=== PATIENT | male | born 1980 | race Caucasian/White ===

== ENCOUNTER 2018-05-14 18:03 | Emergency (ER) | payer BC, SELFPAY ==
[2018-05-14 18:08] VITALS: BP 139/77; PULSE 74; RESP 16; TEMP 37.1; O2SAT 96
--- NOTE | 2018-05-14 18:24 | W.ED.GENAD ---
Discharge Plan Disposition Patient Disposition: HOME Condition: Good Discharge Details Chief Complaint: DentalOral Clinical Impression: Dental infection Primary Care Provider: Edin Magana ED Provider: Zac Padilla Home Meds and New Rx's Prescriptions: New clindamycin HCl 150 mg capsule 450 mg PO TID 10 Days Qty: 90 RF: 0 Continue acetaminophen [Mapap Extra Strength] 500 MG tablet 1,000 mg PO PRN PRNRF: 0 sertraline 100 mg Tablet 200 mg PO DAILY RF: 0 Discharge Instructions Additional Instructions: follow up with your dentist within 2 weeks if you have difficulty swallowing liquids, high fevers or difficulty breathing return to the emergency department you can take 1000mg tylenol and 600mg ibuprofen every 6 hours for pain as needed Discharge Data Discharge Physician: Zac Padilla Medical Decision Making 37 yo male who denies chronic medical problems comes in with cc of left lower mid molar tooth pain since tuesday. Denies difficulty swallowing or breathing. Has numerous dental caries on exam and the tooth that is painful is eroded, no abscess, does have pain with percussion to the tooth. Has midline uvula, no swelling submandibular area, no pain over hyoid or restricted neck movements and has full rom of the neck, speaking in full sentences without stridor. HE has a pcn allergy so will cover dental infection with clindamycin and he will f/u with his dentist. No findings at this time to suggest rpa, airplane captain, ludwigs, epiglotitis Differential Diagnosis pulpitis, abscess, caries HPI General Mode of arrival: ambulatory. Date/Time Provider Initiated Documentation: 05/14/18 18:05. Limitations to Documentation: no limitations. Information obtained by: patient. History of Present Illness 37 year old M presents to the emergency department with the chief complaint of tooth pain, described as moderate, with intensity rated at 6. Quality is described as aching, and is localized to the mouth. Patient reports no radiation. Patient started experiencing this day(s) (2) and it has been constant. No relieving factors improve symptom(s), No exacerbating factors reported . Patient notes no other symptoms.. Patient did receive the following treatments prior to arrival, NSAID Related Data Home Medications Medication Instructions Recorded Confirmed acetaminophen [Mapap Extra 1,000 mg PO PRN PRN 12/26/17 05/14/18 Strength] clindamycin HCl 450 mg PO TID 10 Days #90 cap 05/14/18 sertraline 200 mg PO DAILY 05/14/18 05/14/18 Previous Rx's Medication Instructions Recorded clindamycin HCl 450 mg PO TID 10 Days #90 cap 05/14/18 Allergies Allergy/AdvReac Type Severity Reaction Status Date / Time Penicillins Allergy Mild Hives Unverified 02/26/18 09:16 General Stated Complaint: DentalOral VIVEK: 4 Review of Systems Review of Systems All systems reviewed & are unremarkable except as noted in HPI and below Constitutional Denies chills, Denies fever(s) and Denies weakness Eyes Denies loss of vision ENT Denies change in voice Cardiovascular Denies chest pain and Denies dyspnea Respiratory Denies dyspnea Gastrointestinal Denies abdominal pain, Denies nausea and Denies vomiting Genitourinary Denies dysuria Musculoskeletal Denies joint swelling Integumentary/Breasts Denies rash Neurologic Denies loss of vision and Denies weakness Psychiatric Denies depression Endocrine Denies cold intolerance and Denies heat intolerance Allergic/Immunologic Reports urticaria PFSH Social History Smoking/Tobacco Use Status: Current every day Exam Const General: no acute distress Orientation: alert HENMT Head: normal to inspection Ears: external ears normal General nose exam: external nose normal Mouth: moist mucous membranes Eyes General: appearance normal, both eyes and all related structures Neck Neck: normal visual inspection Resp Effort & Inspection: normal respiratory effort and able to speak in complete sentences Cardio Rate: regular rate Skin General skin exam: no rashes or lesions noted Neuro General: alert and oriented x3 Extrem General: normal to inspection Psych Mental Status: mental status grossly normal Course Vital Signs Temperature 37.1 C 05/14/18 18:08 Pulse 74 05/14/18 18:08 Respiratory Rate 16 05/14/18 18:08 Blood Pressure 139/77 05/14/18 18:08 Pulse Oximetry 96 05/14/18 18:08 Temperature 37.1 C 05/14/18 18:08 Temperature Source Skin 05/14/18 18:08 Pulse 74 05/14/18 18:08 Respiratory Rate 16 05/14/18 18:08 Respiratory Effort 05/14/18 18:16 Blood Pressure 139/77 05/14/18 18:08 Pulse Oximetry 96 05/14/18 18:08 Oxygen Delivery Method Room Air 05/14/18 18:08 Oxygen Flow Rate 0 05/14/18 18:08 Pain Level 7 05/14/18 18:08
--- NOTE | 2018-05-14 18:27 | ED.GENADUL_ITS ---
Discharge Plan Disposition Patient Disposition: HOME Condition: Good Discharge Details Chief Complaint: DentalOral Clinical Impression: Dental infection Primary Care Provider: Edin Magana ED Provider: Zac Padilla Home Meds and New Rx's Prescriptions: New clindamycin HCl 150 mg capsule 450 mg PO TID 10 Days Qty: 90 RF: 0 Continue acetaminophen [Mapap Extra Strength] 500 MG tablet 1,000 mg PO PRN PRNRF: 0 sertraline 100 mg Tablet 200 mg PO DAILY RF: 0 Discharge Instructions Additional Instructions: follow up with your dentist within 2 weeks if you have difficulty swallowing liquids, high fevers or difficulty breathing return to the emergency department you can take 1000mg tylenol and 600mg ibuprofen every 6 hours for pain as needed Discharge Data Discharge Physician: Zac Padilla Medical Decision Making 37 yo male who denies chronic medical problems comes in with cc of left lower mid molar tooth pain since tuesday. Denies difficulty swallowing or breathing. Has numerous dental caries on exam and the tooth that is painful is eroded, no abscess, does have pain with percussion to the tooth. Has midline uvula, no swelling submandibular area, no pain over hyoid or restricted neck movements and has full rom of the neck, speaking in full sentences without stridor. HE has a pcn allergy so will cover dental infection with clindamycin and he will f/ u with his dentist. 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 Date/Time Provider Initiated Documentation: 05/14/18 18:05 . Limitations to Documentation: no limitations . Information obtained by: patient . History of Present Illness 37 year old M presents to the emergency department with the chief complaint of tooth pain, described as moderate, with intensity rated at 6. Quality is described as aching, and is localized to the mouth. Patient reports no radiation. Patient started experiencing this day(s) (2) and it has been constant. No relieving factors improve symptom(s), No exacerbating factors reported . Patient notes no other symptoms.. Patient did receive the following treatments prior to arrival, NSAID Related Data Home Medications Medication Instructions Recorded Confirmed acetaminophen [Mapap Extra 1,000 mg PO PRN PRN 12/26/17 05/14/18 Strength] clindamycin HCl 450 mg PO TID 10 Days #90 cap 05/14/18 sertraline 200 mg PO DAILY 05/14/18 05/14/18 Previous Rx's Medication Instructions Recorded clindamycin HCl 450 mg PO TID 10 Days #90 cap 05/14/18 Allergies Allergy/AdvReac Type Severity Reaction Status Date / Time Penicillins Allergy Mild Hives Unverified 02/26/18 09:16 General Stated Complaint: DentalOral VIVEK: 4 Review of Systems Review of Systems All systems reviewed & are unremarkable except as noted in HPI and below Constitutional Denies chills, Denies fever(s) and Denies weakness Eyes Denies loss of vision ENT Denies change in voice Cardiovascular Denies chest pain and Denies dyspnea Respiratory Denies dyspnea Gastrointestinal Denies abdominal pain, Denies nausea and Denies vomiting Genitourinary Denies dysuria Musculoskeletal Denies joint swelling Integumentary/Breasts Denies rash Neurologic Denies loss of vision and Denies weakness Psychiatric Denies depression Endocrine Denies cold intolerance and Denies heat intolerance Allergic/Immunologic Reports urticaria PFSH Social History Smoking/Tobacco Use Status: Current every day Exam Const General: no acute distress Orientation: alert HENMT Head: normal to inspection Ears: external ears normal General nose exam: external nose normal Mouth: moist mucous membranes Eyes General: appearance normal, both eyes and all related structures Neck Neck: normal visual inspection Resp Effort & Inspection: normal respiratory effort and able to speak in complete sentences Cardio Rate: regular rate Skin General skin exam: no rashes or lesions noted Neuro General: alert and oriented x3 Extrem General: normal to inspection Psych Mental Status: mental status grossly normal Course Vital Signs Temperature 37.1 C 05/14/18 18:08 Pulse 74 05/14/18 18:08 Respiratory Rate 16 05/14/18 18:08 Blood Pressure 139/77 05/14/18 18:08 Pulse Oximetry 96 05/14/18 18:08 Temperature 37.1 C 05/14/18 18:08 Temperature Source Skin 05/14/18 18:08 Pulse 74 05/14/18 18:08 Respiratory Rate 16 05/14/18 18:08 Respiratory Effort 05/14/18 18:16 Blood Pressure 139/77 05/14/18 18:08 Pulse Oximetry 96 05/14/18 18:08 Oxygen Delivery Method Room Air 05/14/18 18:08 Oxygen Flow Rate 0 05/14/18 18:08 Pain Level 7 05/14/18 18:08
[2018-05-14] MEDS: Clindamycin 150 MG CAP 450 MG PO (18:38)
== END 2018-05-14 18:40 | disposition home or self-care (01) ==
PROVIDERS: Emergency Provider Emergency Medicine; PCP Internal Medicine
DX: K04.7 Periapical abscess without sinus (principal); F17.210 Nicotine dependence, cigarettes, uncomplicated
CPT/HCPCS: 99283

== ENCOUNTER 2018-07-18 21:57 | Emergency (ER) | payer BC, SELFPAY ==
[2018-07-18 22:43] VITALS: BP 109/66; PULSE 108; RESP 16; TEMP 37.9; O2SAT 98
--- NOTE | 2018-07-18 23:03 | W.ED.GENAD ---
Discharge Plan Disposition Patient Disposition: HOME Condition: Good Discharge Details Chief Complaint: RespSymp Clinical Impression: Viral URI Primary Care Provider: Edin Magana ED Provider: Brodie Yu Home Meds and New Rx's Prescriptions: New oseltamivir [Tamiflu] 75 mg capsule 75 mg PO BID 5 Days Qty: 10 RF: 0 No Action acetaminophen [Mapap Extra Strength] 500 MG tablet 1,000 mg PO PRN PRNRF: 0 sertraline 100 mg Tablet 200 mg PO DAILY RF: 0 Discharge Instructions Instructions: Influenza (ED), Upper Respiratory Infection (ED) Additional Instructions: Please take medication as directed. Please take Tylenol Motrin for fever and chills. Please drink 8-10 cups of water per day. If you notice any worsening of your symptoms, or any new symptoms such as vomiting, diarrhea, fever, chills, shortness of breath, chest pain, numbness, weakness, or fainting , please return immediately to the emergency department for reevaluation. Please follow up with your primary care provider as soon as possible for reassessment and reevaluation. As always, it was a pleasure participating in your medical care today. Referrals: Edin Magana MD [Primary Care Provider] - Medical Decision Making This is a 37-year-old male who presents today for evaluation of fever, chills, cough, congestion and runny nose. He was recently exposed to someone who was influenza positive roughly 4 days ago. Since then he has had his symptoms over the last 36 hours. Patient strep test is negative. Influenza is negative however the remainder of his family has similar symptoms, with the patient's clinical history suggestive of close contact with influenza, as well as his signs and symptoms clinically consistent with influenza I feel that this may be falsely negative. With my high clinical suspicion we will prescribe Tamiflu. We recommend close follow-up with his PCP. We discussed red flags for which to return. With no signs of meningitis, no abnormal lung sounds, normal respiratory rate and oxygen saturations, I feel that the patient would be a good candidate for outpatient management. I have extensively reviewed the treatment plan and discharge instructions with the patient and their family. I have addressed all patient concerns at this time. The patient and family was made aware of what symptoms to monitor for that would warrant a return to the emergency department. Discussed the plan with the patient and family, they demonstrate verbal understanding and agreement with our assessment and plan at this time. HPI General Date/Time Provider Initiated Documentation: 07/18/18 22:17. HPI Narrative: This is a 37-year-old male with past medical history of sleep apnea who presents today for evaluation of sore throat cough fever and chills. The patient and his entire family were exposed to someone who is influenza positive. There were exposed roughly 3-4 days ago. Since then the entire family has come down with cough, fever, chills, congestion, and runny nose over the last 36 hours. Patient denies any neck stiffness, neck pain, hemoptysis, chest pain, shortness of breath, numbness, tingling, weakness. He denies any urinary symptoms. He denies any vomiting, or diarrhea. He has no other complaints at this time. He denies any other modifying factors. He is not been taking Tylenol or Motrin. Related Data Home Medications Medication Instructions Recorded Confirmed acetaminophen [Mapap Extra 1,000 mg PO PRN PRN 12/26/17 05/14/18 Strength] sertraline 200 mg PO DAILY 05/14/18 05/14/18 oseltamivir [Tamiflu] 75 mg PO BID 5 Days #10 cap 07/18/18 Previous Rx's Medication Instructions Recorded oseltamivir [Tamiflu] 75 mg PO BID 5 Days #10 cap 07/18/18 Allergies Allergy/AdvReac Type Severity Reaction Status Date / Time Penicillins Allergy Mild Hives Unverified 02/26/18 09:16 General Stated Complaint: RespSymp VIVEK: 4 Review of Systems Review of Systems All systems reviewed & are unremarkable except as noted in HPI and below [facility] Social History Smoking/Tobacco Use Status: Current every day Exam Narrative Exam Narrative: 1.Const: Well-nourished, Well-developed, appearing stated age 2.Eyes: PERRL, no conjunctival injection, and symmetrical lids. 3.ENT: Atraumatic external nose and ears. Moist MM. Neck: Symmetric, trachea midline, No thyromegaly. Patient demonstrates good movement of cervical neck. There is no nuchal rigidity, no nuchal tenderness. Patient is able to flex the neck without any difficulty or significant pain. Negative Kernig's and Brudzinski sign. 4.CVS: +S1/S2, No murmurs or gallops. Peripheral pulses 2+ and equal in all extremities. Brisk capillary refill in all extremities. 5.RESP: Unlabored respiratory effort. Clear to auscultation bilaterally. No wheezes rales or rhonchi 6.GI: Soft, Nontender/Nondistended, No hepatosplenomegaly. No guarding or rebound. 7.MSK: Normocephalic/Atraumatic, Extremities w/o deformity or ttp No cyanosis or clubbing, Normal movement of all extremities 8.Skin: Warm, Dry. No rashes or lesions. 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 Sensation grossly intact, no focal neurologic deficits. 10.Psych: (AAO) x3. Appropriate mood and affect Course Vital Signs Temperature 37.9 C H 07/18/18 22:43 Pulse 108 H 07/18/18 22:43 Respiratory Rate 16 07/18/18 22:43 Blood Pressure 109/66 07/18/18 22:43 Pulse Oximetry 98 07/18/18 22:43 Temperature 37.9 C H 07/18/18 22:43 Pulse 108 H 07/18/18 22:43 Respiratory Rate 16 07/18/18 22:43 Respiratory Effort 07/18/18 22:47 Blood Pressure 109/66 07/18/18 22:43 Blood Pressure Position Sitting 07/18/18 22:43 Pulse Oximetry 98 07/18/18 22:43 Oxygen Delivery Method Room Air 07/18/18 22:43 Oxygen Flow Rate 0 07/18/18 22:43 Pain Level 8 07/18/18 22:43 Lab/Test Results Lab/Test Results: 07/18/18 22:32 Nasopharynx Influenza Types A,B Antigen - Final POC Strep Test-EMMANUEL(Rapid) Start: 07/18/18 22:17 Freq: .Rapid Strep Test Status: Active Protocol: Document 07/18/18 22:45 (Rec: 07/18/18 22:45 [id number]) Strep test-EMMANUEL(Rapid)-POC POC-Strep test-EMMANUEL (Rapid) Negative POC-Strep test-EMMANUEL (Rapid) Negative
--- NOTE | 2018-07-18 23:07 | ED.GENADUL_ITS ---
Discharge Plan Disposition Patient Disposition: HOME Condition: Good Discharge Details Chief Complaint: RespSymp Clinical Impression: Viral URI Primary Care Provider: Edin Magana ED Provider: Brodie Yu Home Meds and New Rx's Prescriptions: New oseltamivir [Tamiflu] 75 mg capsule 75 mg PO BID 5 Days Qty: 10 RF: 0 No Action acetaminophen [Mapap Extra Strength] 500 MG tablet 1,000 mg PO PRN PRNRF: 0 sertraline 100 mg Tablet 200 mg PO DAILY RF: 0 Discharge Instructions Instructions: Influenza (ED), Upper Respiratory Infection (ED) Additional Instructions: Please take medication as directed. Please take Tylenol Motrin for fever and chills. Please drink 8-10 cups of water per day. If you notice any worsening of your symptoms, or any new symptoms such as vomiting, diarrhea, fever, chills, shortness of breath, chest pain, numbness, weakness, or fainting , please return immediately to the emergency department for reevaluation. Please follow up with your primary care provider as soon as possible for reassessment and reevaluation. As always, it was a pleasure participating in your medical care today. Referrals: Edin Magana MD [Primary Care Provider] - Medical Decision Making This is a 37-year-old male who presents today for evaluation of fever, chills, cough, congestion and runny nose. He was recently exposed to someone who was influenza positive roughly 4 days ago. Since then he has had his symptoms over the last 36 hours. Patient strep test is negative. Influenza is negative however the remainder of his family has similar symptoms, with the patient's clinical history suggestive of close contact with influenza, as well as his signs and symptoms clinically consistent with influenza I feel that this may be falsely negative. With my high clinical suspicion we will prescribe Tamiflu. We recommend close follow-up with his PCP. We discussed red flags for which to return. With no signs of meningitis, no abnormal lung sounds, normal respiratory rate and oxygen saturations, I feel that the patient would be a good candidate for outpatient management. I have extensively reviewed the treatment plan and discharge instructions with the patient and their family. I have add ressed all patient concerns at this time. The patient and family was made aware of what symptoms to monitor for that would warrant a return to the emergency department. Discussed the plan with the patient and family, they demonstrate verbal understanding and agreement with our assessment and plan at this time. HPI General Date/Time Provider Initiated Documentation: 07/18/18 22:17 . HPI Narrative: This is a 37-year-old male with past medical history of sleep apnea who presents today for evaluation of sore throat cough fever and chills. The patient and his entire family were exposed to someone who is influenza positive. There were exposed roughly 3-4 days ago. Since then the entire family has come down with cough, fever, chills, congestion, and runny nose over the last 36 hours. Patient denies any neck stiffness, neck pain, hemoptysis, chest pain, shortness of breath, numbness, tingling, weakness. He denies any urinary symptoms. He denies any vomiting, or diarrhea. He has no other complaints at this time. He denies any other modifying factors. He is not been taking Tylenol or Motrin. Related Data Home Medications Medication Instructions Recorded Confirmed acetaminophen [Mapap Extra 1,000 mg PO PRN PRN 12/26/17 05/14/18 Strength] sertraline 200 mg PO DAILY 05/14/18 05/14/18 oseltamivir [Tamiflu] 75 mg PO BID 5 Days #10 cap 07/18/18 Previous Rx's Medication Instructions Recorded oseltamivir [Tamiflu] 75 mg PO BID 5 Days #10 cap 07/18/18 Allergies Allergy/AdvReac Type Severity Reaction Status Date / Time Penicillins Allergy Mild Hives Unverified 02/26/18 09:16 General Stated Complaint: RespSymp VIVEK: 4 Review of Systems Review of Systems All systems reviewed & are unremarkable except as noted in HPI and below [facility] Social History Smoking/Tobacco Use Status: Current every day Exam Narrative Exam Narrative: 1.Const: Well-nourished, Well-developed, appearing stated age 2.Eyes: PERRL, no conjunctival injection, and symmetrical lids. 3.ENT: Atraumatic external nose and ears. Moist MM. Neck: Symmetric, trachea midline, No thyromegaly. Patient demonstrates good movement of cervical neck. There is no nuchal rigidity, no nuchal tenderness. Patient is able to flex the neck without any difficulty or significant pain. Negative Kernig's and Brudzinski sign. 4.CVS: +S1/S2, No murmurs or gallops. Peripheral pulses 2+ and equal in all extremities. Brisk capillary refill in all extremities. 5.RESP: Unlabored respiratory effort. Clear to auscultation bilaterally. No wheezes rales or rhonchi 6.GI: Soft, Nontender/Nondistended, No hepatosplenomegaly. No guarding or rebound. 7.MSK: Normocephalic/Atraumatic, Extremities w/o deformity or ttp No cyanosis or clubbing, Normal movement of all extremities 8.Skin: Warm, Dry. No rashes or lesions. 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 Sensation grossly intact, no focal neurologic deficits. 10.Psych: (AAO) x3. Appropriate mood and affect Course Vital Signs Temperature 37.9 C H 07/18/18 22:43 Pulse 108 H 07/18/18 22:43 Respiratory Rate 16 07/18/18 22:43 Blood Pressure 109/66 07/18/18 22:43 Pulse Oximetry 98 07/18/18 22:43 Temperature 37.9 C H 07/18/18 22:43 Pulse 108 H 07/18/18 22:43 Respiratory Rate 16 07/18/18 22:43 Respiratory Effort 07/18/18 22:47 Blood Pressure 109/66 07/18/18 22:43 Blood Pressure Position Sitting 07/18/18 22:43 Pulse Oximetry 98 07/18/18 22:43 Oxygen Delivery Method Room Air 07/18/18 22:43 Oxygen Flow Rate 0 07/18/18 22:43 Pain Level 8 07/18/18 22:43 Lab/Test Results Lab/Test Results: 07/18/18 22:32 Nasopharynx Influenza Types A,B Antigen - Final POC Strep Test-EMMANUEL(Rapid) Start: 07/18/18 22:17 Freq: .Rapid Strep Test Status: Active Protocol: Document 07/18/18 22:45 AC (Rec: 07/18/18 22:45 [id number]) Strep test-EMMANUEL(Rapid)-POC POC-Strep test-EMMANUEL (Rapid) Negative POC-Strep test-EMMANUEL (Rapid) Negative
[2018-07-18] MEDS: Ibuprofen 800 MG TAB PO (23:18)
[2018-07-18] MEDS: Oseltamivir 75 MG CAP PO (23:19)
== END 2018-07-18 23:18 | disposition home or self-care (01) ==
PROVIDERS: Emergency Provider Student in an Organized Health Care Education/Training Program; PCP Internal Medicine
DX: J06.9 Acute upper respiratory infection, unspecified (principal)
CPT/HCPCS: 87449; 87880; 99283

== ENCOUNTER 2018-12-06 17:00 | Emergency (ER) | payer OTHER, SELFPAY ==
[2018-12-06 17:02] VITALS: BP 140/77; PULSE 80; TEMP 37.1; O2SAT 98
--- NOTE | 2018-12-06 17:04 | DI.US_ITS ---
SYMPTOM/DIAGNOSIS: LT TESTICLE PAIN, SWELLING, ? TORSION SCROTAL ULTRASOUND: Scrotal ultrasound was performed according to the usual protocol. No testicular abnormality is seen. Testicular parenchyma is homogeneous bilaterally with normal vascular flow on doppler evaluation. Right epididymis is unremarkable in appearance. Left epididymis shows an appendix with slightly increased in echogenicity in contrast to the adjacent epididymis. The possibility of epididymal appendix torsion not excluded. Please correlate clinically. Small bilateral hydroceles. Minimal debris is noted in the right hydrocele and there are septations and minimal debris in the left hydrocele. CONCLUSION: Bilateral hydroceles, left greater than right. No intratesticular abnormality.
[2018-12-06 17:28] LABS: Bilirubin Negative (Negative); Blood Trace-intact (Negative); Clarity Clear; Glucose Negative (Negative); Ketones Negative (Negative); Leukocyte Esterase Negative (Negative); Nitrite Negative (Negative); Specific Gravity 1.025 (1.005-1.025); Urobilinogen 0.2 EU/dL (Up TO 0.2); pH 5.5 (5-8)
[2018-12-06 17:38] LABS: Bacteria Negative HPF (Negative); C & S Indicated? No; Casts Negative LPF (Negative); Crystals Negative HPF (Negative); Epithelial Cells Negative HPF (Negative); Mucus Negative (Negative); Other Cells Negative (Negative); RBC 0-2 (0-2); WBC 0-2 HPF (0-5)
--- NOTE | 2018-12-06 17:54 | W.ED.GENAD ---
Discharge Plan Disposition Patient Disposition: HOME Condition: Good Discharge Details Chief Complaint: GenMedical Clinical Impression: Bilateral hydrocele, Acute epididymitis Primary Care Provider: Edin Magana ED Provider: Brodie Yu Home Meds and New Rx's Prescriptions: New ibuprofen [Motrin IB] 200 MG tablet 600 mg PO Q6H 5 Days Qty: 60 RF: 0 Continued sertraline 100 mg Tablet 200 mg PO DAILY RF: 0 Discontinued acetaminophen [Mapap Extra Strength] 500 MG tablet 1,000 mg PO PRN PRNRF: 0 Discharge Instructions Instructions: Epididymitis (ED), Testicle Pain (ED) Additional Instructions: Please take maximum dose Tylenol and Motrin as directed. Please wear more tighter fitting underwear. Do not perform any vigorous activities. We will schedule urology follow-up for you. You will be contacted with an appointment date for reassessment of your hydroceles. If you notice any worsening of your symptoms, or any new symptoms such as vomiting, diarrhea, fever, chills, shortness of breath, chest pain, numbness, weakness, or fainting , please return immediately to the emergency department for reevaluation. Please follow up with your primary care provider as soon as possible for reassessment and reevaluation. As always, it was a pleasure participating in your medical care today. Referrals: Chao Stone MD [ [facility] STAFF PHYSICIAN] - Edin Magana MD [Primary Care Provider] - Medical Decision Making This is a pleasant 38-year-old male who presents today for evaluation of left testicle pain. It occurred this morning when he woke up. He has some mild to moderate swelling located over the left testicle, exam demonstrates normal cremasteric reflex bilaterally, notable left epididymal swelling, no significant testicular tenderness. Cremasteric reflex is present, though I suspect the patient has epididymitis with a varicocele, or a hydrocele component. We will get an ultrasound for further evaluation, to rule out torsion which I feel is clinically inconsistent at this time, and reassess. We will give Tylenol and Motrin for pain. 7:25 PM The patient has complete resolution of his symptoms with Tylenol and Motrin. Ultrasound shows no evidence of testicular torsion. There is evidence of slightly enlarged epididymis with questionable evidence of epididymal appendix, however there is no evidence of surrounding hyperemia or other significant abnormality. Clinically there is no blue dot sign, and no clinical evidence of testicular torsion, both historically and on exam. I discussed this with the radiologist, and they reiterate that the findings noted on the ultrasound are often not indicative of epididymal appendiceal torsion, and that ultrasonographic evaluation can be notably difficult without a clinical component. And as stated the patient shows no clinical signs of epididymal appendiceal torsion. He does have notable hydroceles, and this appears to be where his tenderness and achiness is located. We have sent gonorrhea and Chlamydia testing however the patient assures me that he is not at risk for gonorrhea or chlamydia. I did discuss starting antibiotics, through shared decision making process at this time he would like to hold off unless the gonorrhea or chlamydia comes back positive. Will recommend maximum dose Tylenol, Motrin and close are fitting underwear for his mild epididymitis and mild hydrocele pain. We will also schedule outpatient urology follow-up. We discussed red flags which to return the patient understands. With the patient's complete resolution of his pain, lack of clinical evidence of epididymal appendiceal torsion, or testicular torsion, and no evidence of fever, chills or UTI, I feel he can be safely discharged home with close urology follow-up. I have extensively reviewed the treatment plan and discharge instructions with the patient. I have addressed all patient concerns at this time. The patient was made aware of what symptoms to monitor for that would warrant a return to the emergency department. Discussed the plan with the patient, they demonstrate verbal understanding and agreement with our assessment and plan at this time. TECHNIQUE: Imaging protocol: Real-time ultrasound of the scrotum. Real-time duplex ultrasound scan of the arterial and venous flow of the scrotum with B-mode, color Doppler flow and spectral waveform analysis. Complete exam. COMPARISON: No relevant prior studies available. FINDINGS: Right Testicle: Right testis measures 4.7 x 2.9 x 3.4 cm. Left Testicle: Left testis measures 4.4 x 3.4 x 3.4 cm. Epididymides: Left epididymis measures 1.1 x 0.9 x 1.0 cm. Right epididymis measures 1.3 x 0.6 x 1.1 cm. There is a left epididymal appendix which measures 6.2 mm and is heterogeneous and is slightly hyperechoic to the surrounding epididymis. There is no surrounding hyperemia. Only a small dot of color blood flow is seen, possibly artifactual per the electroencephalogram technologist. Blood flow is often difficult to obtain in the epididymal structures. Scrotum: There are left greater than right bilateral hydroceles which contain debris. No varicoceles are seen. Other findings: There is symmetric blood flow within the testes bilaterally. Arterial and venous waveforms were obtained. Both testes are mildly heterogeneous in appearance. BRIDGETT ARGUELLO Preliminary Radiology Report MANAGER BATTERY (QA) DISCREPANCY? If there is a discrepancy between the preliminary and final interpretation, please notify [facility] via [email or web address]. If you do not have access to our QA portal, call our QA team at [phone] CONFIDENTIALITY STATEMENT This report is intended only for the use of the referring physician, and only in accordance with law, If you received this in error, call [phone] Page 2 of 2 IMPRESSION: 1. Symmetric blood flow to the testes bilaterally. 2. There is a left epididymal appendix which measures 6.2 mm and is heterogeneous and slightly hyperechoic to the surrounding epididymis. There is no surrounding hyperemia. Only a small dot of color blood flow is seen, possibly artifactual per the electroencephalogram technologist. Blood flow is often difficult to obtain in the epididymal structures. Findings should be correlated with any clinical concern for torsed epididymal appendix. 3. Left greater than right bilateral hydroceles which contain debris. This debris could represent infectious material, blood products, or sperm. 4. Other findings as above. Thank you for allowing us to participate in the care of your patient. Dictated and Authenticated by: Jessica Pierre MD [facility] General Date/Time Provider Initiated Documentation: 12/06/18 17:04. [facility] Narrative: This is a 38-year-old male with a past medical history of anxiety, who presents today for evaluation of left testicle pain. The patient states that this morning he woke up and noted mild pain and swelling in his left testicle. He describes it as a mild in nature. It is present in his left testicle, with no pain in the right testicle. Slight radiation up the left groin. He denies any dysuria, hematuria, STDs, or urethral discharge. He denies any vomiting, diarrhea, chest pain or shortness of breath. He denies any numbness or tingling in his legs. He denies any previous history of testicular torsion. He denies any trauma to his testicles. He denies any hematospermia or hematuria. He states that the last time he had intercourse or masturbated was greater than a week ago and he had no problems or complaints at that time. Related Data Home Medications Medication Instructions Recorded Confirmed sertraline 200 mg PO DAILY 05/14/18 05/14/18 ibuprofen [Motrin Ib] 600 mg PO Q6H 5 Days #60 tab 12/06/18 Previous Rx's Medication Instructions Recorded ibuprofen [Motrin Ib] 600 mg PO Q6H 5 Days #60 tab 12/06/18 Allergies Allergy/AdvReac Type Severity Reaction Status Date / Time Penicillins Allergy Mild Hives Unverified 02/26/18 09:16 General Stated Complaint: GenMedical VIVEK: 3 Review of Systems Review of Systems All systems reviewed & are unremarkable except as noted in HPI and below PFSH Social History Smoking/Tobacco Use Status: Current every day Drug use: Never Substance use type: does not use Do you feel safe at home: Yes Do you feel safe in your relationship?: Yes Exam Narrative Exam Narrative: 1.Const: Well-nourished, Well-developed, appearing stated age 2.Eyes: PERRL, no conjunctival injection, and symmetrical lids. 3.ENT: Atraumatic external nose and ears. Moist MM. Neck: Symmetric, trachea midline, No thyromegaly. 4.CVS: +S1/S2, No murmurs or gallops. Peripheral pulses 2+ and equal in all extremities. Brisk capillary refill in all extremities. 5.RESP: Unlabored respiratory effort. Clear to auscultation bilaterally. No wheezes rales or rhonchi 6.GI: Soft, Nontender/Nondistended, No hepatosplenomegaly. No guarding or rebound. Male genital exam demonstrates normal penis with no evidence of penile tenderness, no evidence of urethral discharge, it is nontender to palpation. Left testicle is minimally tender, there is an notable fluctuant soft swelling component noted in the left epididymis. Minimal tenderness on palpation. No testicular tenderness on the right. No evidence of scrotal abscess. Normal cremasteric reflex bilaterally. 7.MSK: Normocephalic/Atraumatic, Extremities w/o deformity or ttp No cyanosis or clubbing, Normal movement of all extremities 8.Skin: Warm, Dry. No rashes or lesions. 9.Neuro: brim setter II-XII grossly intact. Sensation grossly intact, no focal neurologic deficits. 10.Psych: (AAO) x3. Appropriate mood and affect Course Vital Signs Temperature 37.1 C 12/06/18 17:02 Pulse 80 12/06/18 17:02 Blood Pressure 140/77 12/06/18 17:02 Pulse Oximetry 98 12/06/18 17:02 Temperature 37.1 C 12/06/18 17:02 Temperature Source Skin 12/06/18 17:02 Pulse 80 12/06/18 17:02 Blood Pressure 140/77 12/06/18 17:02 Blood Pressure Position Sitting 12/06/18 17:02 Pulse Oximetry 98 12/06/18 17:02 Oxygen Delivery Method Room Air 12/06/18 17:02 Oxygen Flow Rate 0 12/06/18 17:02 Pain Level 3 12/06/18 17:02 Lab/Test Results Lab/Test Results: Laboratory Tests Range/Units 12/06/18 17:15 Urine Color (Yellow) Yellow Urine Clarity Clear Urine pH (5-8) 5.5 Ur Specific Lamar (1.005-1.025) 1.025 Urine Protein (Negative) mg/dL Negative Urine Ketones (Negative) mg/dL Negative Urine Blood (Negative) Trace-intact H Urine Nitrite (Negative) Negative Urine Bilirubin (Negative) Negative Urine Urobilinogen (Up TO 0.2) EU/dL 0.2 Ur Leukocyte Esterase (Negative) Negative Urine RBC (0-2) 0-2 Urine WBC (0-5) HPF 0-2 Ur Epithelial Cells (Negative) HPF Negative Urine Crystals (Negative) HPF Negative Urine Bacteria (Negative) HPF Negative Urine Casts (Negative) LPF Negative Urine Mucus (Negative) Negative Urine Other (Negative) Negative Ur Culture Indicated? No Urine Glucose (Negative) mg/dL Negative
[2018-12-06 18:46] VITALS: BP 112/70; PULSE 76; RESP 16; TEMP 37.1; O2SAT 96
[2018-12-06 18:52] VITALS: BP 112/70; PULSE 76; RESP 16; TEMP 37.1; O2SAT 96
--- NOTE | 2018-12-06 19:20 | DI.VRAD_ITS ---
Addendum created by Jessica Pierre MD on 12/06/2018 7:24:44 PM EDT Findings were discussed with ROGE LIN at 12/06/2018 7:24 PM EDT. Initial report created on 12/06/2018 7:20:03 PM EDT EXAM: US Scrotum and US Duplex Artery and Vein, Scrotum, Complete EXAM DATE/TIME: 12/06/2018 6:10 PM CLINICAL HISTORY: 38 years old, male; Signs and symptoms; Other: Left testicular pain/swelling since this am 6:00 (12 hours before scan) TECHNIQUE: Imaging protocol: Real-time ultrasound of the scrotum. Real-time duplex ultrasound scan of the arterial and venous flow of the scrotum with B-mode, color Doppler flow and spectral waveform analysis. Complete exam. COMPARISON: No relevant prior studies available. FINDINGS: Right Testicle: Right testis measures 4.7 x 2.9 x 3.4 cm. Left Testicle: Left testis measures 4.4 x 3.4 x 3.4 cm. Epididymides: Left epididymis measures 1.1 x 0.9 x 1.0 cm. Right epididymis measures 1.3 x 0.6 x 1.1 cm. There is a left epididymal appendix which measures 6.2 mm and is heterogeneous and is slightly hyperechoic to the surrounding epididymis. There is no surrounding hyperemia. Only a small dot of color blood flow is seen, possibly artifactual per the polysomnography technologist. Blood flow is often difficult to obtain in the epididymal structures. Scrotum: There are left greater than right bilateral hydroceles which contain debris. No varicoceles are seen. Other findings: There is symmetric blood flow within the testes bilaterally. Arterial and venous waveforms were obtained. Both testes are mildly heterogeneous in appearance. IMPRESSION: 1. Symmetric blood flow to the testes bilaterally. 2. There is a left epididymal appendix which measures 6.2 mm and is heterogeneous and slightly hyperechoic to the surrounding epididymis. There is no surrounding hyperemia. Only a small dot of color blood flow is seen, possibly artifactual per the polysomnography technologist. Blood flow is often difficult to obtain in the epididymal structures. Findings should be correlated with any clinical concern for torsed epididymal appendix. 3. Left greater than right bilateral hydroceles which contain debris. This debris could represent infectious material, blood products, or sperm. 4. Other findings as above. Dictated and Authenticated by: Jessica Pierre MD. Ordering:JORDEN Calloway MD
--- NOTE | 2018-12-07 07:06 | NUR.NOTE ---
Nursing Note: [facility]. Sophia Keenan.
[2018-12-08 14:42] LABS: Chlamydia Result Negative; GC Result Negative; Specimen Description URINE
--- NOTE | 2018-12-28 14:21 | PDOC.ERCMPRO ---
Care Management Progress Note 12/28-[facility] for an urology appt in 2 weeks for large hydroceles. [facility] faxed back today that they have reached out to patient on 12/08, 12/14 and 12/19 with no response from the patient.
== END 2018-12-06 19:39 | disposition home or self-care (01) ==
PROVIDERS: Emergency Provider Student in an Organized Health Care Education/Training Program; PCP Internal Medicine
DX: N43.3 Hydrocele, unspecified (principal)
CPT/HCPCS: 87491; 87591; 99284; 76870; 81003; 81015

== ENCOUNTER 2018-12-23 03:35 | Emergency (ER) | payer OTHER, SELFPAY ==
[2018-12-23 03:40] VITALS: BP 121/83; PULSE 85; RESP 20; TEMP 37.4; O2SAT 98
--- NOTE | 2018-12-23 03:51 | W.ED.GENAD ---
Discharge Plan Disposition Patient Disposition: HOME Condition: Stable Discharge Details Chief Complaint: RespSymp Clinical Impression: URI (upper respiratory infection) Primary Care Provider: Edin Magana ED Provider: Zac Padlila Home Meds and New Rx's Prescriptions: No Action sertraline 100 mg Tablet 200 mg PO DAILY RF: 0 Discharge Instructions Additional Instructions: You likely are suffering from a viral illness Drink fluids to stay hydrated take 1000mg tylenol and 600mg ibuprofen every 6 hours for pain as needed if symptoms continue in a week see your primary care provider return to the emergency department if you feel significantly more ill, have worsening shortness of breath or persistent vomit Medical Decision Making 38 yo male who denies chronic medical problems comes in with several days of sore throat. Dneies high fevres, has had a dry cough, body aches and also sinus pressure and nasal congestion. No recent travel, no rashes. He is in no distress on exam. 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 HE has clear lungs and appears well so doubt pna and sepsis at this time. I suspect uri due to virus but will eval for strep, if negative will have him use otc therapies and f/u with pcp, and if worsening return for reeval Differential Diagnosis strep pharyngitis, uri, HPI General Mode of arrival: ambulatory. Date/Time Provider Initiated Documentation: 12/23/18 03:47. Limitations to Documentation: no limitations. Information obtained by: patient. History of Present Illness 38 year old M presents to the emergency department with the chief complaint of sore throat, described as moderate, Quality is described as aching, Patient started experiencing this day(s) (3) and it has been constant. No relieving factors improve symptom(s), No exacerbating factors reported . Patient did receive the following treatments prior to arrival, none Related Data Home Medications Medication Instructions Recorded Confirmed sertraline 200 mg PO DAILY 05/14/18 12/23/18 Allergies Allergy/AdvReac Type Severity Reaction Status Date / Time Penicillins Allergy Mild Hives Unverified 12/23/18 03:45 General Stated Complaint: RespSymp VIVEK: 4 Review of Systems Review of Systems All systems reviewed & are unremarkable except as noted in HPI and below Constitutional Denies fever(s) Cardiovascular Denies chest pain Gastrointestinal Denies vomiting Integumentary/Breasts Denies rash [facility] Social History Smoking/Tobacco Use Status: Current every day Drug use: Never Substance use type: does not use Do you feel safe at home: Yes Do you feel safe in your relationship?: Yes Exam Const General: no acute distress Orientation: alert HENMT Head: normal to inspection Ears: external ears normal General nose exam: external nose normal Mouth: moist mucous membranes Eyes General: appearance normal, both eyes and all related structures Neck Neck: normal visual inspection Resp Effort & Inspection: normal respiratory effort and able to speak in complete sentences Cardio Rate: regular rate Skin General skin exam: no rashes or lesions noted Neuro General: alert and oriented x3 Extrem General: normal to inspection Psych Mental Status: mental status grossly normal Course Vital Signs Temperature 37.4 C 12/23/18 03:40 Pulse 85 12/23/18 03:40 Respiratory Rate 20 12/23/18 03:40 Blood Pressure 121/83 12/23/18 03:40 Pulse Oximetry 98 12/23/18 03:40 Temperature 37.4 C 12/23/18 03:40 Temperature Source Temporal Artery Scan 12/23/18 03:40 Pulse 85 12/23/18 03:40 Respiratory Rate 20 12/23/18 03:40 Respiratory Effort 12/23/18 03:46 Respiratory Depth Normal 12/23/18 03:46 Blood Pressure 121/83 12/23/18 03:40 Blood Pressure Position Sitting 12/23/18 03:40 Pulse Oximetry 98 12/23/18 03:40 Oxygen Delivery Method Room Air 12/23/18 03:40 Oxygen Flow Rate 0 12/23/18 03:40 Pain Level 0 12/23/18 03:40
--- NOTE | 2018-12-23 03:56 | ED.GENADUL_ITS ---
Discharge Plan Disposition Patient Disposition: HOME Condition: Stable Discharge Details Chief Complaint: RespSymp Clinical Impression: URI (upper respiratory infection) Primary Care Provider: Edin Magana ED Provider: Zac Padilla Home Meds and New Rx's Prescriptions: No Action sertraline 100 mg Tablet 200 mg PO DAILY RF: 0 Discharge Instructions Additional Instructions: You likely are suffering from a viral illness Drink fluids to stay hydrated take 1000mg tylenol and 600mg ibuprofen every 6 hours for pain as needed if symptoms continue in a week see your primary care provider return to the emergency department if you feel significantly more ill, have worsening shortness of breath or persistent vomit Medical Decision Making 38 yo male who denies chronic medical problems comes in with several days of sore throat. Dneies high fevres, has had a dry cough, body aches and also sinus pressure and nasal congestion. No recent travel, no rashes. He is in no distress on exam. 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 HE has clear lungs and appears well so doubt pna and sepsis at this time. I suspect uri due to virus but will eval for strep, if negative will have him use otc therapies and f/u with pcp, and if worsening return for reeval Differential Diagnosis strep pharyngitis, uri, HPI General Mode of arrival: ambulatory . Date/Time Provider Initiated Documentation: 12/23/18 03:47 . Limitations to Documentation: no limitations . Information obtained by: patient . History of Present Illness 38 year old M presents to the emergency department with the chief complaint of sore throat, described as moderate, Quality is described as aching, Patient started experiencing this day(s) (3) and it has been constant. No relieving factors improve symptom(s), No exacerbating factors reported . Patient did receive the following treatments prior to arrival, none Related Data Home Medications Medication Instructions Recorded Confirmed sertraline 200 mg PO DAILY 05/14/18 12/23/18 Allergies Allergy/AdvReac Type Severity Reaction Status Date / Time Penicillins Allergy Mild Hives Unverified 12/23/18 03:45 General Stated Complaint: RespSymp VIVEK: 4 Review of Systems Review of Systems All systems reviewed & are unremarkable except as noted in HPI and below Constitutional Denies fever(s) Cardiovascular Denies chest pain Gastrointestinal Denies vomiting Integumentary/Breasts Denies rash [facility] Social History Smoking/Tobacco Use Status: Current every day Drug use: Never Substance use type: does not use Do you feel safe at home: Yes Do you feel safe in your relationship?: Yes Exam Const General: no acute distress Orientation: alert HENMT Head: normal to inspection Ears: external ears normal General nose exam: external nose normal Mouth: moist mucous membranes Eyes General: appearance normal, both eyes and all related structures Neck Neck: normal visual inspection Resp Effort & Inspection: normal respiratory effort and able to speak in complete sentences Cardio Rate: regular rate Skin General skin exam: no rashes or lesions noted Neuro General: alert and oriented x3 Extrem General: normal to inspection Psych Mental Status: mental status grossly normal Course Vital Signs Temperature 37.4 C 12/23/18 03:40 Pulse 85 12/23/18 03:40 Respiratory Rate 20 12/23/18 03:40 Blood Pressure 121/83 12/23/18 03:40 Pulse Oximetry 98 12/23/18 03:40 Temperature 37.4 C 12/23/18 03:40 Temperature Source Temporal Artery Scan 12/23/18 03:40 Pulse 85 12/23/18 03:40 Respiratory Rate 20 12/23/18 03:40 Respiratory Effort 12/23/18 03:46 Respiratory Depth Normal 12/23/18 03:46 Blood Pressure 121/83 12/23/18 03:40 Blood Pressure Position Sitting 12/23/18 03:40 Pulse Oximetry 98 12/23/18 03:40 Oxygen Delivery Method Room Air 12/23/18 03:40 Oxygen Flow Rate 0 12/23/18 03:40 Pain Level 0 12/23/18 03:40
== END 2018-12-23 04:15 | disposition home or self-care (01) ==
PROVIDERS: Emergency Provider Emergency Medicine; PCP Internal Medicine
DX: J06.9 Acute upper respiratory infection, unspecified (principal)
CPT/HCPCS: 87880; 99282; 87081

== ENCOUNTER 2019-03-30 16:49 | Emergency (ER) | payer OTHER, SELFPAY ==
[2019-03-30 16:57] VITALS: BP 129/79; PULSE 80; RESP 15; TEMP 36.9; O2SAT 96
--- NOTE | 2019-03-30 17:17 | ED.GENADUL_ITS ---
Discharge Plan Disposition Patient Disposition: HOME Condition: Good Discharge Details Chief Complaint: DentalOral Clinical Impression: Pain, dental Primary Care Provider: Eidn Magana ED Provider: Brodie Yu Home Meds and New Rx's Prescriptions: New clindamycin HCl 150 mg capsule 450 mg PO TID 7 Days Qty: 63 RF: 0 No Action sertraline 100 mg Tablet 200 mg PO DAILY RF: 0 Discharge Instructions Instructions: Toothache (ED) Additional Instructions: Please take the clindamycin as directed. Please take 1000 mg of Tylenol every 6 hours and 800 mg of ibuprofen every 6 hours for pain. Please take the antibiotic with yogurt with live cultures to prevent diarrhea. Please follow-up closely with your dentist. If you notice any worsening of your symptoms, or any new symptoms such as vomiting, diarrhea, fever, chills, shortness of breath, chest pain, numbness, weakness, or fainting , please return immediately to the emergency department for reevaluation. Please follow up with your primary care provider as soon as possible for reassessment and reevaluation. As always, it was a pleasure participating in your medical care today. Medical Decision Making This is a pleasant 38-year-old male with notably poor dentition who presents with left upper posterior tooth pain for the last few days. No discharge or drainage. Clinical exam demonstrates no evidence of periapical abscess or fluctuance. Vital signs stable. Patient was given dental block and had complete resolution of his pain. Started on clindamycin secondary to his allergy to penicillins. He has a dentist and we recommended that he contact him as soon as possible. Discussed the importance of NSAIDs. I have extensively reviewed the treatment plan and discharge instructions with the patient. I have addressed all patient concerns at this time. The patient was made aware of what symptoms to monitor for that would warrant a return to the emergency department. Discussed the plan with the patient, they demonstrate verbal understanding and agreement with our assessment and plan at this time. Time out was taken to identify the correct patient, procedure, and site. Risks and benefits were discussed with the patient and consent was obtained. Direct pressure was held over the area prior to the procedure to reduce painful injection. 5 cc?s of Lidocaine 1% and Bupivacaine 0.25% was instilled into the left upper posterior alveolar space with a 27 gauge needle.Complete analgesia was obtained. The patient tolerated the procedure. There were no complications. HPI General Date/Time Provider Initiated Documentation: 03/30/19 17:17 . HPI Narrative: This is a pleasant 38-year-old male who presents today for evaluation of dental pain. The patient complains of 2 to 3 days of left upper posterior molar dental pain. No fever or chills. He denies any discharge. He denies any fever, headache, neck pain, difficulty swallowing or breathing. He has been taking Tylenol Motrin which has slightly improved his pain. He has not followed up with his dentist yet. He does have a dentist O. No other complaints or modifying factors. Known history of poor dentition. Related Data Home Medications Medication Instructions Recorded Confirmed sertraline 200 mg PO DAILY 05/14/18 03/30/19 clindamycin HCl 450 mg PO TID 7 Days #63 cap 03/30/19 Previous Rx's Medication Instructions Recorded clindamycin HCl 450 mg PO TID 7 Days #63 cap 03/30/19 Allergies Allergy/AdvReac Type Severity Reaction Status Date / Time Penicillins Allergy Mild Hives Unverified 03/30/19 17:02 General Stated Complaint: DentalOral VIVEK: 4 Review of Systems Review of Systems All systems reviewed & are unremarkable except as noted in HPI and below PFS Social History Smoking/Tobacco Use Status: Current every day Drug use: Never Substance use type: does not use Do you feel safe at home: Yes Do you feel safe in your relationship?: Yes Exam Narrative Exam Narrative: 1.Const: Well-nourished, Well-developed, appearing stated age 2.Eyes: PERRL, no conjunctival injection, and symmetrical lids. 3.ENT: Atraumatic external nose and ears. Moist MM. Neck: Symmetric, trachea midline, No thyromegaly. Notable poor dentition throughout, multiple old fractured teeth. Posterior left upper molars demonstrate no evidence of fluctuance, or significant abscess. Patient states that there is a minimal fluid collection on the roof of his mouth however there is no asymmetry noted on exam. No evidence of significant periapical abscess. Patient demonstrates good movement of cervical neck. There is no nuchal rigidity, no nuchal tenderness. Patient is able to flex the neck without any difficulty or significant pain. Negative Kernig's and Brudzinski sign. 4.CVS: +S1/S2, No murmurs or gallops. Peripheral pulses 2+ and equal in all extremities. Brisk capillary refill in all extremities. 5.RESP: Unlabored respiratory effort. Clear to auscultation bilaterally. No wheezes rales or rhonchi 6.GI: Soft, Nontender/Nondistended, No hepatosplenomegaly. No guarding or rebound. 7.MSK: Normocephalic/Atraumatic, Extremities w/o deformity or ttp No cyanosis or clubbing, Normal movement of all extremities 8.Skin: Warm, Dry. No rashes or lesions. 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 Sensation grossly intact, no focal neurologic deficits. 10.Psych: (AAO) x3. Appropriate mood and affect Course Vital Signs Temperature 36.9 C 03/30/19 16:57 Pulse 80 03/30/19 16:57 Respiratory Rate 15 03/30/19 16:57 Blood Pressure 129/79 03/30/19 16:57 Pulse Oximetry 96 03/30/19 16:57 Temperature 36.9 C 03/30/19 16:57 Temperature Source Temporal Artery Scan 03/30/19 16:57 Pulse 80 03/30/19 16:57 Respiratory Rate 15 03/30/19 16:57 Respiratory Effort Non-Labored 03/30/19 17:01 Blood Pressure 129/79 03/30/19 16:57 Blood Pressure Position Sitting 03/30/19 16:57 Pulse Oximetry 96 03/30/19 16:57 Oxygen Delivery Method Room Air 03/30/19 16:57 Oxygen Flow Rate 0 03/30/19 16:57 Pain Level 8 03/30/19 17:02
[2019-03-30] MEDS: Bupivacaine 0.5% Pres-Free 30 ML VIAL (17:22)
== END 2019-03-30 17:25 | disposition home or self-care (01) ==
LOC: ER 17:46
PROVIDERS: Emergency Provider Student in an Organized Health Care Education/Training Program; PCP Internal Medicine
DX: R68.84 Jaw pain (principal); K08.89 Other specified disorders of teeth and supporting structures
CPT/HCPCS: 64402

== ENCOUNTER 2019-03-31 04:21 | Emergency (ER) | payer OTHER, SELFPAY ==
[2019-03-31 04:27] VITALS: BP 121/84; PULSE 76; RESP 18; TEMP 36.5; O2SAT 97
--- NOTE | 2019-03-31 04:34 | ED.GENADUL_ITS ---
Discharge Plan Disposition Patient Disposition: HOME Condition: Stable Discharge Details Chief Complaint: DentalOral Clinical Impression: Dental caries Primary Care Provider: Edin Magana ED Provider: Zac Padilla Home Meds and New Rx's Prescriptions: Continued clindamycin HCl 150 mg capsule 450 mg PO TID 7 Days Qty: 63 RF: 0 sertraline 100 mg Tablet 200 mg PO DAILY RF: 0 Discharge Instructions Instructions: Dental Caries (ED) Additional Instructions: follow up with your dentist within a week use the topical numbing medicine we gave you as needed up to 4 times a day you can take 1000mg tylenol and 600mg ibuprofen every 6 hours for pain as needed if you have high fevers, difficulty breathing or inability to swallow liquids return to the emergency department Medical Decision Making 38 yo male who denies chronic medical problems comes in with left upper posterior dental pain. He was seen yesterday and had dental block with relief of pain and started on clindamycin. He states the block wore off and had return of pain so came here. Denies fevers and chills. most of his teeth are severely eroded and the area where he is having pain the molar is almost completely eroded, left upper posterior. There is no swelling, no abscess I can visualize. no submandibular swelling to suggest ludwigs. I do not feel comfortable performing another nerve block so soon after his other block, will try topical and see if this provides relief. pt had some relief with the topical benzocaine, will d/c him with this and have him f/u with dentist and continue clindamycin and return precautions given Differential Diagnosis dental caries, dental abscess, pulpitis HPI General Mode of arrival: ambulatory . Date/Time Provider Initiated Documentation: 03/31/19 04:22 . Limitations to Documentation: no limitations . Information obtained by: patient . History of Present Illness 38 year old M presents to the emergency department with the chief complaint of dental pain, described as moderate, Quality is described as aching, and is localized to the mouth. Patient started experiencing this day(s) (2) and it has been constant. No relieving factors improve symptom(s), No exacerbating factors reported . Related Data Home Medications Medication Instructions Recorded Confirmed sertraline 200 mg PO DAILY 05/14/18 03/31/19 clindamycin HCl 450 mg PO TID 7 Days #63 cap 03/30/19 03/31/19 Previous Rx's Medication Instructions Recorded clindamycin HCl 450 mg PO TID 7 Days #63 cap 03/30/19 Allergies Allergy/AdvReac Type Severity Reaction Status Date / Time Penicillins Allergy Mild Hives Unverified 03/31/19 04:32 General Stated Complaint: DentalOral VIVEK: 4 PFSH Social History Smoking/Tobacco Use Status: Current every day Drug use: Never Substance use type: does not use Do you feel safe at home: Yes Do you feel safe in your relationship?: Yes Exam Const General: no acute distress Orientation: alert HENMT Head: normal to inspection Ears: external ears normal General nose exam: external nose normal Mouth: moist mucous membranes Eyes General: appearance normal, both eyes and all related structures Neck Neck: normal visual inspection Resp Effort & Inspection: normal respiratory effort and able to speak in complete sentences Cardio Rate: regular rate Skin General skin exam: no rashes or lesions noted Neuro General: alert and oriented x3 Extrem General: normal to inspection Psych Mental Status: mental status grossly normal Course Vital Signs Temperature 36.5 C 03/31/19 04:27 Pulse 76 03/31/19 04:27 Respiratory Rate 18 03/31/19 04:27 Blood Pressure 121/84 03/31/19 04:27 Pulse Oximetry 97 03/31/19 04:27 Temperature 36.5 C 03/31/19 04:27 Temperature Source Temporal Artery Scan 03/31/19 04:27 Pulse 76 03/31/19 04:27 Respiratory Rate 18 03/31/19 04:27 Blood Pressure 121/84 03/31/19 04:27 Blood Pressure Position Sitting 03/31/19 04:27 Pulse Oximetry 97 03/31/19 04:27 Oxygen Delivery Method Room Air 03/31/19 04:27 Oxygen Flow Rate 0 03/31/19 04:27 Pain Level 10 03/31/19 04:27
[2019-03-31] MEDS: Benzocaine 20% Gel 30 GM JAR MM (04:37)
== END 2019-03-31 04:54 | disposition home or self-care (01) ==
PROVIDERS: Emergency Provider Emergency Medicine; PCP Internal Medicine
DX: R68.84 Jaw pain (principal); K02.9 Dental caries, unspecified
CPT/HCPCS: 99282; 99283

== ENCOUNTER 2019-06-24 07:21 | Emergency (ER) | payer OTHER, SELFPAY ==
[2019-06-24 07:24] VITALS: BP 123/71; PULSE 74; RESP 18; TEMP 36.4; O2SAT 95
--- NOTE | 2019-06-24 08:14 | DI.RAD_ITS ---
EXAM: XR CHEST 2V PA LATERAL INDICATION: cough, left back pain r/o pneumonia. COMPARISON: CHEST 2 VIEWS PA,LAT from 12/22/2012 TECHNIQUE: 2D digital imaging was performed. FINDINGS: Heart size is normal. The lungs are well inflated and clear. No infiltrate, effusion or pneumothora x is seen. No rib or spine fracture is identified. IMPRESSION: Negative chest x-ray.
--- NOTE | 2019-06-24 08:16 | W.ED.GENAD ---
Discharge Plan Disposition Patient Disposition: HOME Condition: Good Discharge Details Chief Complaint: FlankPain Clinical Impression: Back pain Primary Care Provider: Edin Magana ED Provider: Agueda Soria Home Meds and New Rx's Prescriptions: New cyclobenzaprine 10 mg tablet 10 mg PO TID PRN (Reason: muscle spasm) Qty: 10 RF: 0 No Action sertraline 100 mg Tablet 200 mg PO DAILY RF: 0 Discharge Instructions Instructions: Back Pain (ED) Additional Instructions: Ice or heat to the back for discomfort. Use Motrin or Tylenol for soreness if needed. Rest no heavy lifting. Use muscle relaxant as prescribed. Do not drive, drink more work while taking this medication will cause drowsiness. For any onset of ill feeling or change in symptoms please have reevaluation. Hepatitis panel is pending. Please make close follow-up appointment with your primary care doctor as he did have elevation of your liver enzymes which should be followed up with your PCP. Spleen was noted to be mildly enlarged. Diverticulosis noted on your CT finding. Return for any worsening or concerns sooner if needed as discussed. Medical Decision Making Is a 38-year-old patient with no significant medical history who presents for complaints of back pain. Patient denies specific injury or trauma. No history of similar. 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 Patient denies any history of similar pain. Patient complaining primarily of left flank pain. Patient denies obvious ill feeling, nausea or vomiting. Patient does report mild cough but no other associated upper respiratory symptoms. Denies fever or chills. Patient denies urinary urgency, frequency or dysuria. No changes in bowels. Pain is causing discomfort and difficulty sleeping at night. On initial exam patient has notable left CVA tenderness. No back pain with straight leg raise. No abdominal pain on exam. Breath sounds are clear. Will order CT to rule out possible kidney stone. Urinalysis ordered. IV fluids as well as Toradol for comfort. Patient reports no significant relief with Toradol. Although patient is clearly resting and sleeping at the bedside. Patient was provided Valium IV as he reports persistent pain when ambulating to the bathroom. CT scan of patient's abdomen reveals borderline splenomegaly, diverticulosis of the retrograde sigmoid colon without associated diverticulitis. Significant hepatic steatosis. Labs do note an associated elevation of his LFTs. Patient denies being a drinker. Very rarely consumes alcohol. Hepatitis panel was added to patient's evaluation as well as a lipase. Lipase ultimately returned normal. Urinalysis unremarkable for infection. No identified kidney stone on CT scan. X-ray of chest is normal. Patient again declines any significant improvement with Valium. He is ambulating without difficulty and steadily. At this point patient is requesting discharge home. There is no clear etiology of patient's pain however it may be musculoskeletal in nature. Patient has had a history of shingles in the past but has no rash at this time. Patient counseled regarding rash or skin changes to have immediate return. Patient's vitals remained stable. Patient has no associated leukocytosis. Patient encouraged close follow-up with his primary care doctor for incidental findings, Follow-up of LFTs and reevaluation for his back and flank pain. Patient agrees with plan of care. The patient was stable and requested discharge. Prior to discharge, my usual and customary return precautions were reviewed with the patient - this included follow-up instructions and reasons to return to the Emergency Department if conditions worsens, does not improve as expected, or other new concerns arise. HPI General Date/Time Provider Initiated Documentation: 06/24/19 07:22. 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 Patient reports he has had 3 days of left flank/back pain. He denies any specific injury or trauma reports pain is more constant, approximately 5 out of 10. Patient reports he his uncomfortable, having difficulty sleeping at night due to pain. Patient reports mild worsening of pain with range of motion but otherwise no significant difficulty with change in position. Patient denies associated abdominal complaints. Denies nausea, vomiting or bowel changes. Denies any urinary urgency, frequency or dysuria. No hematuria. Patient denies headache or dizziness. Has taken no medications for this pain. No other concerns or complaints. Patient does report a mild cough with no other associated upper respiratory symptoms. Related Data Home Medications Medication Instructions Recorded Confirmed sertraline 200 mg PO DAILY 05/14/18 06/24/19 cyclobenzaprine 10 mg PO TID PRN #10 tab 06/24/19 Previous Rx's Medication Instructions Recorded cyclobenzaprine 10 mg PO TID PRN #10 tab 06/24/19 Allergies Allergy/AdvReac Type Severity Reaction Status Date / Time Penicillins Allergy Mild Hives Unverified 06/24/19 07:27 General Stated Complaint: Nk/Back Pain VIVEK: 3 Review of Systems All systems reviewed & are unremarkable except as noted in HPI and below Constitutional Constitutional: Denies chills, Denies fatigue, Denies fever(s), Denies headache(s) and Denies malaise ENT Ears, Nose, Mouth, and Throat: Denies headache(s) Respiratory Respiratory: Reports cough, Denies pain with cough and Denies wheezing Gastrointestinal Gastrointestinal: Denies abdominal pain, Denies diarrhea, Denies nausea and Denies vomiting Genitourinary Genitourinary: Denies dysuria, Reports flank pain, Denies urinary frequency and Denies urinary urgency Musculoskeletal Musculoskeletal: Denies abnormal gait, Reports back pain, Denies limited range of motion, Denies numbness, Denies radiating pain into limb and Denies tingling Neurologic Neurologic: Denies abnormal gait, Denies headache(s), Denies numbness and Denies tingling Endocrine Endocrine: Denies fatigue Allergic/Immunologic Allergic/Immunologic: Denies wheezing [facility] Social History Smoking/Tobacco Use Status: Current every day Tobacco Type: cigarettes Drug use: Never Substance use type: does not use Do you feel safe at home: Yes Do you feel safe in your relationship?: Yes Exam Narrative Exam Narrative: CONST: Healthy appearing patient, in no acute distress. Well hydrated. Alert and alert. NECK: Normal visual inspection. FROM. Trachea midline. No Midline tenderness. CHEST: Normal insepection of the chest. RESP: Normal respiratory effort. Speaking full sentences. No cough. No audible wheezing. No retractions. CARDIO: No JVD. No murmurs or rubs. Regular rate and rhythm. GI: abdomen is soft, nontender. Bowel sounds present in all 4 quadrants. MUSCULOSKELETAL: Normal Gait. FROM of all extremities. Back: Left CVA tenderness noted. No right CVA tenderness. No back pain with straight leg raise. SKIN: Normal. Dry. No rashes. NEURO: Alert and awake. Speech clear. PSYCH: Normal affect. Cooperative. Course Vital Signs Vital signs: Vital Signs Temperature 36.4 C L 06/24/19 07:24 Pulse 74 06/24/19 07:24 Respiratory Rate 18 06/24/19 07:24 Blood Pressure 123/71 06/24/19 07:24 Pulse Oximetry 95 06/24/19 07:24 Temperature 36.4 C L 06/24/19 07:24 Temperature Source Temporal Artery Scan 06/24/19 07:24 Pulse 74 06/24/19 07:24 Respiratory Rate 18 06/24/19 07:24 Respiratory Effort Non-Labored 06/24/19 07:29 Blood Pressure 123/71 06/24/19 07:24 Blood Pressure Position Sitting 06/24/19 07:24 Pulse Oximetry 95 06/24/19 07:24 Oxygen Delivery Method Room Air 06/24/19 07:24 Oxygen Flow Rate 0 06/24/19 07:24 Pain Level 6 06/24/19 07:29
--- NOTE | 2019-06-24 08:20 | DI.CT_ITS ---
EXAM: CT RENAL COLIC WO CLINICAL HISTORY: pain TECHNIQUE: Noncontrast COMPARISON: ABD AND PELVIS WITH CONTRAST from 01/09/2008 FINDINGS: There is severe hepatic steatosis. The liver is mildly enlarged. There is mild splenic enlargement. There are no urinary tract calculi or evidence of hydronephrosis. The bladder and prostate are unr emarkable. There are small bilateral fat-containing inguinal hernias. There are diverticula in the sigmoid region of the colon but no evidence of diverticulitis. There is no bowel wall thickening or distention. Aorta is normal in diameter. There is no free air or free fluid. IMPRESSION: Severe fatty infiltration of the liver. No evidence of urinary tract calculi, hydronephrosis or othe r acute abnormality.
[2019-06-24 08:22] LABS: Abs Immature Grans 0.01 k/cumm (0.0-0.09); Absolute Basophil Count 0.05 k/cumm (0.0-0.2); Absolute Eosinophil Count 0.44 k/cumm (0.0-0.7); Absolute Lymphocyte Count 1.99 k/cumm (1.2-3.4); Absolute Neutrophil Count 4.79 k/cumm (1.2-6.7); Basophils % 0.6; Eosinophils % 5.7; HCT 42.2 % (40.0-50.0); HGB 14.4 g/dL (13.5-17.5); Immature Grans % 0.1; Lymphocytes % 25.6; Mean Corp. HGB Concentration 34.1 g/dL (32.0-36.0); Mean Corpuscular Hemoglobin 30.7 pg (27.0-33.0); Mean Platelet Volume 12.5 fL (8.0-11.0); Monocytes % 6.4; Neutrophils % 61.6; Platelet Count 131 x1000/uL (130-400); RBC 4.69 m/cumm (4.50-6.00); RBC Distribution Width 13.1 % (11.8-14.1); White Blood Cell Count 7.78 k/cumm (4.4-10.8)
[2019-06-24] MEDS: Ketorolac 15 MG/ML VIAL IVP (08:27)
[2019-06-24] MEDS: Normal Saline 1,000 ML 1000 ML IV (08:27)
[2019-06-24 08:33] LABS: Bilirubin Negative (Negative); Blood Small (Negative); Clarity Clear (Clear); Glucose Negative (Negative); Ketones Negative (Negative); Leukocyte Esterase Negative (Negative); Nitrite Negative (Negative); Specific Gravity 1.015 (1.005-1.025); Urobilinogen 0.2 EU/dL (Up TO 0.2)
[2019-06-24 08:36] LABS: ALT 141 U/L (16-63); AST 56 U/L (15-37); Alkaline Phosphatase 79 U/L (46-116); Anion Gap 8.2 mmol/L (3-11); BUN 14 mg/dL (7-18); Bilirubin, Total 0.4 mg/dL (0.2-1.0); CO2 26.8 mmol/L (21.0-32.0); Chloride 103 mmol/L (98-107); Glucose 174 mg/dL (74-106); Sodium 138 mmol/L (136-145); Total Protein 7.6 g/dL (6.4-8.2)
[2019-06-24 08:43] LABS: Bacteria Negative HPF (Negative); C & S Indicated? No; Casts Negative LPF (Negative); Crystals Negative HPF (Negative); Epithelial Cells Rare HPF (Negative); Mucus Trace (Negative); RBC 0-2 HPF (0-2); WBC 0-2 HPF (0-5)
--- NOTE | 2019-06-24 09:07 | DI.VRAD_ITS ---
PROCEDURE INFORMATION: Exam: XR Chest, 2 Views Exam date and time: 06/24/2019 8:48 AM Age: 38 years old Clinical history: Patient HX: Cough, left sided back pain. R/O pneumonia TECHNIQUE: Imaging protocol: XR of the chest Views: 2 views. COMPARISON: CR CHEST 2 VIEWS PA,LAT 12/22/2012 2:19 PM FINDINGS: Lungs: Unremarkable. No consolidation. Pleural space: Unremarkable. No pleural effusion. No pneumothorax. Heart/Mediastinum: Unremarkable. No cardiomegaly. Bones/joints: Unremarkable. IMPRESSION: No acute findings. Dictated and Authenticated by: Kaye Block MD. Ordering:LETY Romeo MD
--- NOTE | 2019-06-24 09:14 | DI.VRAD_ITS ---
PROCEDURE INFORMATION: Exam: CT Abdomen And Pelvis Without Contrast Exam date and time: 06/24/2019 8:43 AM Age: 38 years old Clinical history: Abdominal pain; Prior surgery; Surgery date: 6+ months; Surgery type: Appendectomy 8 years ago; Patient HX: Left sided flank pain, no gross hematuria, no HX of kidney stones. TECHNIQUE: Imaging protocol: Computed tomography of the abdomen and pelvis without contrast. Radiation optimization: All CT scans at this facility use at least one of these dose optimization techniques: automated exposure control; mA and/or kV adjustment per patient size (includes targeted exams where dose is matched to clinical indication); or iterative reconstruction. COMPARISON: No relevant prior studies available. FINDINGS: Liver: Significant hepatic steatosis. Hepatomegaly Gallbladder and bile ducts: Normal. No calcified stones. No ductal dilation. Pancreas: Normal. No ductal dilation. Spleen: Borderline splenomegaly 13.8 cm. Adrenals: Normal. No mass. Kidneys and ureters: No renal calculus. No ureteral calculus. Stomach and bowel: Diverticulosis of the rectosigmoid. No diverticulitis. Appendix: Appendectomy Intraperitoneal space: Unremarkable. No free air. No significant fluid collection. Vasculature: Unremarkable. No abdominal aortic aneurysm. Lymph nodes: Unremarkable. No enlarged lymph nodes. Bladder: Unremarkable as visualized. Reproductive: Unremarkable as visualized. Bones/joints: Unremarkable. No acute fracture. Soft tissues: Unremarkable. IMPRESSION: 1. Significant hepatic steatosis. 2. Borderline splenomegaly 13.8 cm. 3. No renal calculus. No ureteral calculus. Dictated and Authenticated by: Kaye Block MD. Ordering:LETY Romeo MD
[2019-06-24 10:15] LABS: Lipase 118 U/L (73-393)
[2019-06-24] MEDS: diazePAM 10 MG/2 ML SYR 5 MG IVP (10:19)
[2019-06-24 10:25] VITALS: BP 105/76; PULSE 74; RESP 16; O2SAT 96
[2019-06-25 11:54] LABS: Hepatitis A Antibody IgM Negative (Negative); Hepatitis B Core Antibody Negative (Negative); Hepatitis B surface Ag Negative (Negative); Hepatitis C Ab w Rflx HCV PCR Negative (Negative)
== END 2019-06-24 11:16 | disposition home or self-care (01) ==
PROVIDERS: Emergency Provider Physician Assistant; PCP Internal Medicine
DX: M54.5 Low back pain (principal); K57.30 Diverticulosis of large intestine without perforation or abscess without bleeding
CPT/HCPCS: 36415; 80053; 83690; 86704; 86709; 86803; 87340; 96361; 96374; 96375; 99284; 71046; 74176; 81003; 81015; 85025; J1885; J3360

== ENCOUNTER 2019-10-02 12:54 | Emergency (ER) | payer OTHER, SELFPAY ==
[2019-10-02 12:57] VITALS: BP 140/86; PULSE 78; RESP 16; TEMP 36.9; O2SAT 96
--- NOTE | 2019-10-02 13:35 | ED.GENADUL_ITS ---
Discharge Plan Disposition Patient Disposition: HOME Condition: Stable Discharge Details Chief Complaint: DentalOral Clinical Impression: Pain, dental Primary Care Provider: Edin Magana ED Provider: Trell Andrews Home Meds and New Rx's Prescriptions: New clindamycin HCl 300 mg capsule 300 mg PO TID 10 Days Qty: 30 RF: 0 No Action sertraline 100 mg Tablet 200 mg PO DAILY RF: 0 Discharge Instructions Instructions: Toothache (ED) Additional Instructions: Clindamycin as directed. Cool and/or warm compresses every 2 hours for 20 minutes. [id number] medications as directed for symptomatic control. Please watch for new or worsening symptoms and return to the ER for any concerns. I do recommend establishing out patient dental care as soon as possible Medical Decision Making 39-year-old gentleman presenting with 3-day history of dental pain. No obvious pointing abscess. Airway is patent. He appears well, nontoxic is afebrile. He is a current smoker. Given his allergy to amoxicillin, will provide prescription for clindamycin, recommend goff-cba-[id number] medication for symptomatic control, and stressed the importance of outpatient dental follow-up. Medical Records Medical records reviewed: Yes I reviewed the patient's medical records. HPI General Mode of arrival: ambulatory . Date/Time Provider Initiated Documentation: 10/02/19 12:54 . Limitations to Documentation: no limitations . Information obtained by: patient . HPI Narrative: 39-year-old gentleman, current smoker, denies any significant past medical history. Reports 3-day history of left lower dental pain, moderate in nature, taking [id number] medications with little relief. He is concerned he may be developing an infection and believes he likely needs antibiotics. He is in the process of establishing outpatient dental care. Denies any headache, ear pain, sore throat, cough, fever. No difficulty speaking, swallowing, breathing. Related Data Home Medications Medication Instructions Recorded Confirmed sertraline 200 mg PO DAILY 05/14/18 10/02/19 clindamycin HCl 300 mg PO TID 10 Days #30 cap 10/02/19 Previous Rx's Medication Instructions Recorded clindamycin HCl 300 mg PO TID 10 Days #30 cap 10/02/19 Allergies Allergy/AdvReac Type Severity Reaction Status Date / Time Penicillins Allergy Mild Hives Unverified 10/02/19 12:59 General Stated Complaint: DentalOral VIVEK: 4 Review of Systems Constitutional Constitutional: Denies fever(s) and Denies headache(s) ENT Ears, Nose, Mouth, and Throat: Denies headache(s) and Denies sore throat Respiratory Respiratory: Denies cough Integumentary/Breasts Skin/Breast: Denies rash Neurologic Neurologic: Denies headache(s) [facility] Social History Smoking/Tobacco Use Status: Current every day Tobacco Type: cigarettes Drug use: Never Substance use type: does not use Do you feel safe at home: Yes Do you feel safe in your relationship?: Yes Exam Const General: cooperative, healthy appearing, comfortable and no acute distress Orientation: alert and awake HENMT Head: normal to inspection, normocephalic and atraumatic Face and sinus: normal facial exam Mouth: oral mucosae normal and moist mucous membranes Teeth and gingiva: normal gingiva, poor dentition (Throughout) and other (Discomfort over her left inferior posterior teeth, no pointing abscess) Throat: posterior oropharynx normal Eyes Conjunctivae: conjunctivae normal Neck Neck: normal visual inspection, trachea midline and supple Resp Effort & Inspection: normal respiratory effort and able to speak in complete sentences Cardio Rate: regular rate Rhythm: regular rhythm Skin General skin exam: no rashes or lesions noted Neuro General: alert, awake, moves all extremities and no focal motor deficits Sensory Exam: no sensory deficits noted Psych Appearance: grossly normal Mental Status: mental status grossly normal Course Vital Signs Vital signs: Vital Signs Temperature 36.9 C 10/02/19 12:57 Pulse 78 10/02/19 12:57 Respiratory Rate 16 10/02/19 12:57 Blood Pressure 140/86 10/02/19 12:57 Pulse Oximetry 96 10/02/19 12:57 Temperature 36.9 C 10/02/19 12:57 Temperature Source Skin 10/02/19 12:57 Pulse 78 10/02/19 12:57 Respiratory Rate 16 10/02/19 12:57 Respiratory Effort Non-Labored 10/02/19 12:57 Blood Pressure 140/86 10/02/19 12:57 Blood Pressure Position Sitting 10/02/19 12:57 Pulse Oximetry 96 10/02/19 12:57 Oxygen Delivery Method Room Air 10/02/19 12:57 Oxygen Flow Rate 0 10/02/19 12:57 Pain Level 8 10/02/19 13:00 Comment 10/02/19 12:57
== END 2019-10-02 13:46 | disposition home or self-care (01) ==
PROVIDERS: Emergency Provider Physician Assistant; PCP Internal Medicine
DX: K08.89 Other specified disorders of teeth and supporting structures (principal); Z88.0 Allergy status to penicillin; F17.210 Nicotine dependence, cigarettes, uncomplicated
CPT/HCPCS: 99283

== ENCOUNTER 2019-11-29 12:18 | Outpatient (CLI) | payer OTHER, SELFPAY ==
[2019-11-30 13:58] LABS: COVID-19 RT-PCR UVMMC Result Negative (Negative)
== END 2019-11-29 12:38 ==
PROVIDERS: PCP Internal Medicine; Visit Provider Nurse Practitioner Family
DX: Z11.59 Encounter for screening for other viral diseases (principal)
CPT/HCPCS: U0003

== ENCOUNTER 2020-05-19 12:57 | Outpatient (REF) | payer OTHER, SELFPAY ==
[2020-05-19 21:00] LABS: ALT 121 U/L (16-63); AST 47 U/L (15-37); Albumin 4.3 g/dL (3.4-5.0); Alkaline Phosphatase 101 U/L (46-116); Anion Gap 11.4 mmol/L (3-11); BUN 15 mg/dL (7-18); Bilirubin, Total 0.3 mg/dL (0.2-1.0); CO2 25.6 mmol/L (21.0-32.0); CREATININE 1.11 mg/dL (0.70-1.30); Calcium 9.3 mg/dL (8.5-10.1); Calculated LDL 125 mg/dL (<100); Chloride 102 mmol/L (98-107); Cholesterol 233 mg/dL (<200); Glucose 214 mg/dL (74-106); HDL Cholesterol 37 mg/dL (40-60); Iron 98 ug/dL (65-175); Potassium 4.4 mmol/L (3.5-5.1); Sodium 139 mmol/L (136-145); Total Iron Binding Capacity 321 ug/dL (250-450); Total Protein 7.9 g/dL (6.4-8.2); Transferrin Sat 31 % (20-55); Triglyceride 358 mg/dL (<150)
== END 2020-05-19 13:17 ==
LOC: NCHCN 12:57
PROVIDERS: PCP Internal Medicine; Visit Provider Family Medicine
DX: K76.0 Fatty (change of) liver, not elsewhere classified (principal)
CPT/HCPCS: 80053; 80061; 83540; 83550

== ENCOUNTER → 2020-08-15 13:40 | Outpatient (REF) | payer OTHER, SELFPAY ==
[2020-08-15 21:27] LABS: Hemoglobin A1C 9.7 % (<5.7)
== END ==
LOC: NCHCN 13:40
PROVIDERS: PCP Internal Medicine; Visit Provider Nurse Practitioner Family
DX: R81 Glycosuria (principal)
CPT/HCPCS: 83036

== ENCOUNTER 2020-08-16 21:40 | Emergency (ER) | payer OTHER, SELFPAY ==
[2020-08-16 21:46] VITALS: BP 132/93; PULSE 81; RESP 16; TEMP 36.7; O2SAT 98
--- NOTE | 2020-08-16 21:56 | W.ED.GENAD ---
Discharge Plan Disposition Patient Disposition: HOME Condition: Stable Discharge Details Clinical Impression: Diabetes Primary Care Provider: Edin Magana ED Provider: Zac Padilla Home Meds and New Rx's Prescriptions: New metformin 500 mg tablet 500 mg PO BID Qty: 20 RF: 0 Continued sertraline 100 mg Tablet 200 mg PO DAILY RF: 0 Discharge Instructions Instructions: Diabetes and Nutrition (ED), Diabetes and Exercise (ED) Additional Instructions: follow up with your primary care provider this week if you feel more ill, have fevers, difficulty breathing or persistent vomit return to the emergency department Medical Decision Making 40 yo male with no diagnosed diabetes states comes in feeling mild tired the past few days and mild headaches and today has had blood sugar levels using his 's glucometer in the 's so came here. 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 He arrives hemodynamically stable speaking in full sentences. Normal gait, states pain is mild across the front of his head, not the worst of his life and not thunderclap, CN II-XII intact and no focal motor or sensation deficits. He likely has undiagnosed type 2 diabetes. He is drinking fluids on his own and doesn't appear dehydrated so do not feel he requires IVF and no tachypnea and appears well otherwise so doubt dka. Suspect headache is tension headache, no findings to suggest SAH, ladies' hat trimmer infection, sdh, cavernous sinus thrombosis or cerebral venous thrombosis. Will d/c home on metoformin and he is going to follow up with his pcp this week, return precautions given Differential Diagnosis Differential Diagnosis: adult onset diabetes, dehydration HPI General Mode of arrival: ambulatory. Date/Time Provider Initiated Documentation: 08/16/20 21:41. Limitations to Documentation: no limitations. Information obtained by: patient. History of Present Illness 40 year old M presents to the emergency department with the chief complaint of high blood sugar, described as moderate, Patient started experiencing this day(s) (2) and it has been constant. No relieving factors improve symptom(s), No exacerbating factors reported . Patient did receive the following treatments prior to arrival, none Related Data Home Medications Medication Instructions Recorded Confirmed sertraline 200 mg PO DAILY 05/14/18 08/16/20 metformin 500 mg PO BID #20 tab 08/16/20 Previous Rx's Medication Instructions Recorded metformin 500 mg PO BID #20 tab 08/16/20 Allergies Allergy/AdvReac Type Severity Reaction Status Date / Time Penicillins Allergy Mild Hives Unverified 08/16/20 21:50 General Stated Complaint: Diabetes VIVEK: 3 Review of Systems All systems reviewed & are unremarkable except as noted in HPI and below Constitutional Constitutional: Denies chills, Denies fever(s) and Denies weakness Cardiovascular Cardiovascular: Denies chest pain and Denies dyspnea Respiratory Respiratory: Denies cough and Denies dyspnea Gastrointestinal Gastrointestinal: Denies abdominal pain, Denies nausea and Denies vomiting Musculoskeletal Musculoskeletal: Denies joint swelling Neurologic Neurologic: Denies weakness [facility] Medical History (Updated 08/16/20 @ 22:00 by Zac Padilla MD) Sleep apnea Social History Smoking/Tobacco Use Status: Current every day Tobacco Type: cigarettes Smoking risk assessment performed?: Yes Drug use: Never Substance use type: does not use Do you feel safe at home: Yes Do you feel safe in your relationship?: Yes Exam Const General: no acute distress Orientation: alert HENMT Head: normal to inspection Ears: external ears normal General nose exam: external nose normal Mouth: moist mucous membranes Eyes General: appearance normal, both eyes and all related structures Neck Neck: normal visual inspection Resp Effort & Inspection: normal respiratory effort and able to speak in complete sentences Cardio Rate: regular rate Skin General skin exam: no rashes or lesions noted Neuro General: patient alert and patient oriented x3 Extrem General: normal to inspection Psych Mental Status: mental status grossly normal Course Vital Signs Vital signs: Vital Signs Temperature 36.7 C 08/16/20 21:46 Pulse 81 08/16/20 21:46 Respiratory Rate 16 08/16/20 21:46 Blood Pressure 132/93 H 08/16/20 21:46 Pulse Oximetry 98 08/16/20 21:46 Temperature 36.7 C 08/16/20 21:46 Pulse 81 08/16/20 21:46 Respiratory Rate 16 08/16/20 21:46 Respiratory Effort Non-Labored 08/16/20 21:50 Blood Pressure 132/93 H 08/16/20 21:46 Pulse Oximetry 98 08/16/20 21:46 Pain Level 7 08/16/20 21:46
[2020-08-16] MEDS: metFORMIN 500 MG TAB PO (22:03)
== END 2020-08-16 22:05 | disposition home or self-care (01) ==
PROVIDERS: Emergency Provider Emergency Medicine; PCP Internal Medicine
DX: E11.65 Type 2 diabetes mellitus with hyperglycemia (principal); R53.83 Other fatigue; R51.9 Headache, unspecified
CPT/HCPCS: 99283

== ENCOUNTER → 2020-08-18 15:28 | Outpatient (REF) | payer OTHER, SELFPAY ==
[2020-08-18 14:16] LABS: COMMENT (LAB VIEW ONLY) 207.39 mg/dL; Microalb ug/mg Crea 16.7 ug/mg Cr
== END ==
LOC: NCHCN 15:28
PROVIDERS: PCP Internal Medicine; Visit Provider Family Medicine
DX: Z00.00 Encounter for general adult medical examination without abnormal findings (principal); E11.65 Type 2 diabetes mellitus with hyperglycemia; Z13.220 Encounter for screening for lipoid disorders; Z13.29 Encounter for screening for other suspected endocrine disorder
CPT/HCPCS: 82043; 82570

== ENCOUNTER → 2020-08-25 13:27 | Outpatient (REF) | payer OTHER, SELFPAY ==
[2020-08-25 14:19] LABS: COMMENT (LAB VIEW ONLY) 234.86 mg/dL; Microalb ug/mg Crea 16.4 ug/mg Cr
== END ==
LOC: NCHCN 13:27
PROVIDERS: PCP Internal Medicine; Visit Provider Family Medicine
DX: E11.65 Type 2 diabetes mellitus with hyperglycemia (principal)
CPT/HCPCS: 82043; 82570

== ENCOUNTER 2020-11-03 08:31 | Outpatient (REF) | payer OTHER, SELFPAY ==
[2020-11-03 13:50] LABS: Anion Gap 10.8 mmol/L (3-11); BUN 21 mg/dL (7-18); CO2 28.2 mmol/L (21.0-32.0); CREATININE 1.2 mg/dL (0.70-1.30); Calcium 10.3 mg/dL (8.5-10.1); Chloride 102 mmol/L (98-107); Glucose 129 mg/dL (74-106); Potassium 5.7 mmol/L (3.5-5.1); Sodium 141 mmol/L (136-145)
[2020-11-03 13:56] LABS: Hemoglobin A1C 6.6 % (<5.7)
== END 2020-11-03 08:32 | disposition home or self-care (01) ==
LOC: NCHCN 08:31
PROVIDERS: PCP Internal Medicine; Visit Provider Family Medicine
DX: E11.65 Type 2 diabetes mellitus with hyperglycemia (principal); R80.9 Proteinuria, unspecified; E66.9 Obesity, unspecified
CPT/HCPCS: 80048; 83036

== ENCOUNTER 2021-04-12 18:16 | Emergency (ER) | payer OTHER, SELFPAY ==
[2021-04-12 18:21] VITALS: BP 136/87; PULSE 81; RESP 18; TEMP 36.4; O2SAT 99
--- NOTE | 2021-04-12 19:16 | W.ED.GENAD ---
Discharge Plan Disposition Patient Disposition: HOME Condition: Stable Discharge Details Clinical Impression: Abscess, dental Primary Care Provider: Edin Magana ED Provider: Christina Lopez Home Meds and New Rx's Prescriptions: New clindamycin HCl 150 mg capsule 450 mg PO TID 10 Days Qty: 90 RF: 0 Continued sertraline 100 mg Tablet 200 mg PO DAILY RF: 0 metformin 500 mg tablet 1,000 mg PO BID RF: 0 lisinopril 2.5 mg tablet 2.5 mg PO DAILY RF: 0 Discharge Instructions Instructions: Dental Abscess (ED) Additional Instructions: Gargle with warm salt water Antibiotics until completed Ibuprofen 600 mg every 8 hours with food Tylenol 650 mg every 4-6 hours as needed for pain Please return with difficulty swallowing, chest pains, shortness of breath, difficulty swallowing Referrals: Edin Magana MD [Primary Care Provider] - Medical Decision Making Patient afebrile and nontoxic Discharge home on clindamycin, no evidence of Peterson angina, dental applied, patient will call tomorrow Ibuprofen and Tylenol for pain control Return precautions discussed and patient expressed understanding Medical Records Medical records reviewed: Yes I reviewed the patient's medical records. HPI General Mode of arrival: ambulatory. Date/Time Provider Initiated Documentation: 04/12/21 18:24. Limitations to Documentation: no limitations. Information obtained by: patient. HPI Narrative: This 40-year-old male presents with report of possible dental abscess. He has swelling to his left upper tooth. He states he has widespread dental decay. He has a drink significant episode antibiotics Bactrim. He denies any fever or chills. He denies any shortness of breath or difficulty swallowing. He denies any chest discomfort. He has not been on antibiotics recently. He does not currently have a dentist. Has not been taking ibuprofen or Tylenol for pain. Symptoms reportedly began yesterday. He denies difficulty opening jaw. Related Data Home Medications Medication Instructions Recorded Confirmed sertraline 200 mg PO DAILY 05/14/18 04/12/21 clindamycin HCl 450 mg PO TID 10 Days #90 cap 04/12/21 lisinopril 2.5 mg PO DAILY 04/12/21 04/12/21 metformin 1,000 mg PO BID 04/12/21 04/12/21 Previous Rx's Medication Instructions Recorded clindamycin HCl 450 mg PO TID 10 Days #90 cap 04/12/21 Allergies Allergy/AdvReac Type Severity Reaction Status Date / Time Penicillins Allergy Mild Hives Unverified 04/12/21 18:24 General Stated Complaint: DentalOral VIVEK: 4 Review of Systems All systems reviewed & are unremarkable except as noted in HPI and below PFSH Medical History (Updated 04/12/21 @ 19:18 by TAYLER Vyas) Sleep apnea Social History Smoking/Tobacco Use Status: Current every day Tobacco Type: cigarettes Smoking risk assessment performed?: Yes Drug use: Never Substance use type: does not use Do you feel safe at home: Yes Do you feel safe in your relationship?: Yes Exam Const General: cooperative, comfortable and no acute distress [facility] Throat image: 1. Swelling to gumline, mild area of edema with possible fluctuance, no hard or soft palate induration, uvula midline, no trismus, oropharynx patent, maintaining secretions, numerous fractures Other: Left maxillary swelling Eyes Pupils: PERRL Neck Other: No stridor Resp Effort & Inspection: normal respiratory effort Cardio Rate: regular rate Course Vital Signs Vital signs: Vital Signs Temperature 36.4 C L 04/12/21 18:21 Pulse 81 04/12/21 18:21 Respiratory Rate 18 04/12/21 18:21 Blood Pressure 136/87 04/12/21 18:21 Pulse Oximetry 99 04/12/21 18:21 Temperature 36.4 C L 04/12/21 18:21 Temperature Source Temporal Artery Scan 04/12/21 18:21 Pulse 81 04/12/21 18:21 Respiratory Rate 18 04/12/21 18:21 Respiratory Effort Non-Labored 04/12/21 18:26 Blood Pressure 136/87 04/12/21 18:21 Blood Pressure Position Sitting 04/12/21 18:21 Pulse Oximetry 99 04/12/21 18:21 Oxygen Delivery Method Room Air 04/12/21 18:21 Oxygen Flow Rate 0 04/12/21 18:21 Pain Level 4 04/12/21 18:21
[2021-04-12] MEDS: Clindamycin 150 MG CAP, 12 CAPS/BTL 450 MG PO (19:28)
== END 2021-04-12 19:53 | disposition home or self-care (01) ==
PROVIDERS: Emergency Provider Physician Assistant; PCP Internal Medicine
DX: K04.7 Periapical abscess without sinus (principal)
CPT/HCPCS: 99283

== ENCOUNTER 2021-05-25 08:51 | Outpatient (REF) | payer OTHER, SELFPAY ==
[2021-05-25 15:22] LABS: ALT 50 U/L (16-63); AST 14 U/L (15-37); Albumin 4.4 g/dL (3.4-5.0); Alkaline Phosphatase 67 U/L (46-116); BUN 24 mg/dL (7-18); Bilirubin, Total 0.3 mg/dL (0.2-1.0); CREATININE 1.1 mg/dL (0.70-1.30); Calcium 9.4 mg/dL (8.5-10.1); Calculated LDL 130 mg/dL (<100); Chloride 103 mmol/L (98-107); Cholesterol 199 mg/dL (<200); Glucose 101 mg/dL (74-106); HDL Cholesterol 38 mg/dL (40-60); Potassium 4.4 mmol/L (3.5-5.1); Sodium 140 mmol/L (136-145); Total Protein 7.7 g/dL (6.4-8.2); Triglyceride 156 mg/dL (<150)
== END 2021-05-25 08:52 | disposition home or self-care (01) ==
LOC: NCHCN 08:51
PROVIDERS: PCP Internal Medicine; Visit Provider Family Medicine
DX: E11.65 Type 2 diabetes mellitus with hyperglycemia (principal); R80.9 Proteinuria, unspecified; E78.5 Hyperlipidemia, unspecified; K76.0 Fatty (change of) liver, not elsewhere classified
CPT/HCPCS: 80053; 80061

== ENCOUNTER 2022-04-03 18:26 | Emergency (ER) | payer OTHER, SELFPAY ==
[2022-04-03 18:33] VITALS: BP 103/81; PULSE 77; RESP 16; TEMP 36.5; O2SAT 97
--- NOTE | 2022-04-03 18:45 | DI.RAD_ITS ---
Exam(s) XR PORTABLE CHEST AP EXAM: XR PORTABLE CHEST AP CLINICAL HISTORY: Cough TECHNIQUE: 2D digital imaging was performed. COMPARISON: CR,XR XR CHEST 2V PA LATERAL from 06/24/2019 FINDINGS: LUNGS: Clear. No pleural abnormality seen. HEART: Normal. AORTA: Normal. BONES: Unremarkable for age. Soft tissues: Unremarkable. IMPRESSION: No acute findings. DATA REPOSITORY: RADIATION DOSE DELIVERED:
--- NOTE | 2022-04-03 18:45 | DI.RAD_ITS ---
Exam(s) XR TOE LT GREAT EXAM: XR TOE LT GREAT CLINICAL HISTORY: Pain, DM. TECHNIQUE: 2D digital imaging was performed. Three views. COMPARISON: CR LEFT FOOT COMPLETE from 11/25/2014 FINDINGS: BONES: No acute fracture is present. No bony destructive lesion is seen. JOINTS: No dislocation present. SOFT TISSUE: Normal. IMPRESSION: No evidence of acute fracture, dislocation, or subluxation. DATA REPOSITORY: RADIATION DOSE DELIVERED:
--- NOTE | 2022-04-03 18:55 | ED.GENADUL_ITS ---
Discharge Plan Disposition Patient Disposition: HOME Condition: Improving Discharge Details Clinical Impression: Acute bronchitis with bronchospasm, Swelling of left half of scrotum Primary Care Provider: Eric St ED Provider: Salvador Cruz Home Meds and New Rx's Prescriptions: New doxycycline hyclate 100 mg capsule 100 mg PO BID 10 Days Qty: 20 0RF Continued sertraline 100 mg Tablet 200 mg PO DAILY metformin 500 mg tablet 1,000 mg PO BID lisinopril 2.5 mg tablet 2.5 mg PO DAILY Discharge Instructions Instructions: Acute Bronchitis (ED) Additional Instructions: Our care management team will arrange a follow-up for you in urology clinic to reevaluate your left testicle swelling. Please take antibiotics as prescribed until finished. May use the provided albuterol inhaler if needed for coughing fits or for wheezi ng. Return or seek neuro health care evaluation if you have shortness of breath, increasing need for the inhaler, or any other acute concern. Medical Decision Making 41-year-old male smoker. He presents with a number of complaints. First is 2 weeks of a cough that began as a sinus infection and now manifested as cough with production of sputum. He is not hypoxic and has not had a fever. He does reveal an expiratory wheeze and scattered rhonchi on exam. Second is months of left testicular swelling that has been painless. He is urinating normally and normal erections. He will require follow-up. 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 Finally the patient complains of atraumatic left great toe pain. Patient referred for chest x-ray and left toe x-ray no evidence of acute disease present. Placed patient on a course of antibiotics for bronchitis. He is given a albuterol inhaler for as needed use and is encouraged to decrease tobacco use. As above, we will refer to urology for his longstanding scrotal swelling/question mass. He is stable and appropriate for outpatient management at this time. HPI General Mode of arrival: ambulatory . Date/Time Provider Initiated Documentation: 04/03/22 18:38 . Limitations to Documentation: no limitations . Information obtained by: patient . History of Present Illness 41 year old M presents to the emergency department with the chief complaint of Cough, left toe pain, left scrotal swelling, described as mild, and it has been intermittent. No relieving factors improve symptom(s), No exacerbating factors reported . Patient notes cough; denies chest pain, fever/chills, shortness of breath and syncope. Patient did receive the following treatments prior to arrival, none Related Data Home Medications Medication Instructions Recorded Confirmed sertraline 100 mg tablet 200 mg PO DAILY 05/14/18 04/03/22 lisinopril 2.5 mg tablet 2.5 mg PO DAILY 04/12/21 04/03/22 metformin 500 mg tablet 1,000 mg PO BID 04/12/21 04/03/22 doxycycline hyclate 100 mg capsule 100 mg PO BID 10 days #20 caps 04/03/22 Previous Rx's Medication Instructions Recorded doxycycline hyclate 100 mg capsule 100 mg PO BID 10 days #20 caps 04/03/22 Allergies Allergy/AdvReac Type Severity Reaction Status Date / Time Penicillins Allergy Mild Hives Unverified 04/03/22 18:39 General Stated Complaint: [employer] VIVEK: 3 Review of Systems Narrative: No shortness of breath. No chest pain. Continues to smoke. Cough with production of sputum. Has had left testicular swelling and pain over months to years time. Left great toe pain without injury. 7 systems reviewed and otherwise negative. Patient is immunized against COVID. [facility] All Active Problems (Updated 04/03/22 @ 19:17 by Salvador Cruz MD) Abscess, dental (Acute) Acute bronchitis with bronchospasm (Acute) Swelling of left half of scrotum (Acute) Medical History Sleep apnea Social History Smoking/Tobacco Use Status: Never Smoking risk assessment performed?: Yes Drug use: Never Substance use type: does not use Do you feel safe at home: Yes Do you feel safe in your relationship?: Yes Exam Narrative Exam Narrative: GEN: awake, alert, oriented 3. Pleasant, well groomed, interactive. HEAD: Normocephalic, atraumatic ENT: Mucous membranes moist, oropharynx unremarkable, External ear exam unremarkable EYES: PERRL, EOMI NECK: Full ROM, no CRISTINA, no menigismus CHEST/RESP: Bilateral end expiratory wheeze present, cough noted CARDIOVASCULAR: RRR, no murmur, rub maria g. 2+ Rad pulse bilateral ABDOMEN: Soft, nontender, no mass. +Bowel sounds. : Left testicular/scrotal swelling, nontender EXT: Full ROM, no edema, no rash, toes unremarkable Neuro: Grossly normal neurologic exam, conversant, interactive. Psych: Speech fluent, thoughts congruent, affect normal Course Vital Signs Vital signs: Vital Signs Temperature 36.5 C 04/03/22 18:33 Pulse 77 04/03/22 18:33 Respiratory Rate 16 04/03/22 18:33 Blood Pressure 103/81 04/03/22 18:33 Pulse Oximetry 97 04/03/22 18:33 Temperature 36.5 C 04/03/22 18:33 Temperature Source Tympanic 04/03/22 18:33 Pulse 77 04/03/22 18:33 Respiratory Rate 16 04/03/22 18:33 Respiratory Effort 04/03/22 18:33 Blood Pressure 103/81 04/03/22 18:33 Blood Pressure Position Sitting 04/03/22 18:33 Pulse Oximetry 97 04/03/22 18:33 Oxygen Delivery Method Room Air 04/03/22 18:33 Oxygen Flow Rate 0 04/03/22 18:33 Pain Level 6 04/03/22 18:33
--- NOTE | 2022-04-03 19:45 | DI.VRAD_ITS ---
PROCEDURE INFORMATION: Exam: XR Chest Exam date and time: 04/03/2022 18:55 Age: 41 years old Clinical indication: Cough TECHNIQUE: Imaging protocol: Radiologic exam of the chest. Views: 1 view. COMPARISON: CR XR CHEST 2V PA LATERAL 06/24/2019 08:47 FINDINGS: Lungs: No consolidation. Pleural spaces: No pleural effusion. No pneumothorax. Heart/Mediastinum: No cardiomegaly. Bones/joints: No acute fracture. IMPRESSION: Negative portable chest. Dictated and Authenticated by: Tina Holland MD. Ordering:TY Franco MD
--- NOTE | 2022-04-03 19:45 | DI.VRAD_ITS ---
PROCEDURE INFORMATION: Exam: XR Left Toe(s) Exam date and time: 04/03/2022 18:57 Age: 41 years old Clinical indication: Other: Pain, dm TECHNIQUE: Imaging protocol: Radiologic exam of the Left toes. Views: Minimum 2 views. COMPARISON: No relevant prior studies available. FINDINGS: Bones/joints: No acute fracture or subluxation. No focal osseous erosion. Soft tissues: Digital soft tissue swelling. IMPRESSION: No acute bony pathology. Dictated and Authenticated by: Tina Holland MD. Ordering:TY Franco MD
[2022-04-03 20:00] VITALS: RESP 16
[2022-04-03] MEDS: Albuterol HFA 8 GM 60 PUFF INH IH (20:10)
[2022-04-03] MEDS: Inhaler, Assist Device 1 EACH MC (20:10)
[2022-04-03] MEDS: Doxycycline Hyclate 100 MG, 2 CAPS/BTL PO (20:18)
[2022-04-03 20:35] VITALS: BP 114/76; PULSE 75; RESP 16; TEMP 36.3; O2SAT 100
== END 2022-04-03 20:18 | disposition home or self-care (01) ==
PROVIDERS: Emergency Provider Emergency Medicine; PCP Family Medicine
DX: J20.9 Acute bronchitis, unspecified (principal); N50.89 Other specified disorders of the male genital organs; F17.200 Nicotine dependence, unspecified, uncomplicated
CPT/HCPCS: 99284; 71045; 73660

== ENCOUNTER 2022-05-24 10:15 | Outpatient (REF) | payer OTHER, SELFPAY ==
[2022-05-24 15:08] LABS: HCT 44.6 % (40.0-50.0); HGB 14.8 g/dL (13.5-17.5); MCH 29.5 pg (27.0-33.0); MCHC 33.2 % (32.0-36.0); MCV 89 fL (80-95); MPV 12.9 fL (8.0-11.0); Platelet Count 153 10^3/uL (130-400); RBC 5.02 10^6/uL (4.36-5.78); RDW 12.8 % (11.8-14.1); RDW-SD 41.3 fL; WBC 15.02 10^3/uL (4.4-10.8)
[2022-05-24 16:03] LABS: ALT 52 U/L (16-63); AST 23 U/L (15-37); Albumin 4.5 g/dL (3.4-5.0); Alkaline Phosphatase 92 U/L (46-116); Anion Gap 10.7 mmol/L (3-11); BUN 19 mg/dL (7-18); Bilirubin, Total 0.3 mg/dL (0.2-1.0); CO2 27.3 mmol/L (21.0-32.0); CREATININE 1.2 mg/dL (0.70-1.30); Calcium 9.9 mg/dL (8.5-10.1); Calculated LDL 136 mg/dL (<100); Chloride 101 mmol/L (98-107); Cholesterol 212 mg/dL (<200); Glucose 130 mg/dL (74-106); HDL Cholesterol 35 mg/dL (40-60); Potassium 4.2 mmol/L (3.5-5.1); Sodium 139 mmol/L (136-145); Total Protein 8.1 g/dL (6.4-8.2); Triglyceride 208 mg/dL (<150)
== END 2022-05-24 10:16 | disposition home or self-care (01) ==
LOC: NCHCN 10:15
PROVIDERS: PCP Family Medicine; Visit Provider Family Medicine
DX: Z00.00 Encounter for general adult medical examination without abnormal findings (principal); E11.9 Type 2 diabetes mellitus without complications; F41.8 Other specified anxiety disorders
CPT/HCPCS: 80053; 80061; 85027

== ENCOUNTER 2022-09-16 06:10 | Day surgery (SDC) | payer OTHER, SELFPAY ==
[2022-09-16] VITALS (10 sets, daily range): BP systolic 85–115; BP diastolic 54–83; PULSE 63–74; RESP 14–18; TEMP 36.4–36.6; O2SAT 92–100; BMI 31.1
[2022-09-16] MEDS: Lactated Ringers 1,000 ML 80 ML IV (06:40)
[2022-09-16] MEDS: CIPROFLOXACIN 400 MG/200 ML BAG 200 MG IVPB (06:42)
--- NOTE | 2022-09-16 07:00 | W.ANESPRE ---
General Info Date of Service Date Performed: 09/16/22 Height: 5 ft 8 in Weight: 93 kg Body Mass Index (BMI): 31.1 Surgical Procedure: Operation Date: 09/16/22 07:40 Proposed Procedure Side Surgeon p Hydrocelectomy Left Chao Stone MD Meds Allergies and Home Medications Allergies Allergy/AdvReac Type Severity Reaction Status Date / Time Penicillins Allergy Mild Hives Unverified 09/16/22 06:23 metformin Allergy Verified 09/16/22 06:23 Home Medication Medication Instructions Recorded sertraline 100 mg tablet 200 mg PO DAILY 05/14/18 metformin 1,000 mg tablet,extended 1,000 mg PO DAILY 07/05/22 release 24hr Current Visit Medications: Current Medications Generic Name Dose Route Start Last Admin Trade Name Freq PRN Reason Stop Dose Admin Ringer's Solution 1,000 mls @ 80 mls/hr 09/16/22 06:00 09/16/22 06:40 IV 09/16/22 23:59 80 mls/hr INFUSION MORENA Administration Ciprofloxacin 400 mg in 200 mls @ 200 mls/hr 09/16/22 06:00 09/16/22 06:42 Cipro I.V. IVPB 09/16/22 16:00 200 mls/hr PREOP MORENA Administration IV Miscellaneous Supplies 1 each 09/16/22 06:00 Iv Access IV 09/16/22 23:59 DIRECTED MORENA Sodium Chloride 0 ml 09/16/22 06:00 Normal Saline Flush 10 Ml Syr IV 09/16/22 23:59 PRN PRN Sodium Chloride 0 ml 09/16/22 06:00 Normal Saline 10 Ml Vial IJ 09/16/22 23:59 DIRECTED PRN Sterile Water 0 ml 09/16/22 06:00 Water,Injection,Sterile 10 Ml Vial IJ 09/16/22 23:59 DIRECTED PRN PFSH Active Problems Active Problems: Problem Status Onset Code Abscess, dental K04.7 Scrotal pain N50.82 Medical History Medical History (Updated 09/16/22 @ 07:03 by Chao Stone MD) Anxiety Hx of fracture of tibia Sleep apnea Surgical History Surgical History (Updated 09/16/22 @ 06:24 by April Zimmer) History of appendectomy Hx of wisdom tooth extraction Tobacco Smoking/Tobacco Use Status: Current every day Tobacco Type: cigarettes Alcohol Alcohol Intake: current Alcohol intake frequency: holidays/special occasions only Substance Use Substance use: Never Substance use type: does not use Vital Signs and Lab Results Vital Signs Most Recent Vital Signs in EMR: Most Recent Vital Signs Temp Pulse Resp BP Pulse Ox 36.5 C 66 16 115/83 98 09/16/22 06:42 09/16/22 06:42 09/16/22 06:42 09/16/22 06:42 09/16/22 06:42 Point of Care Results Point of Care Results: Finger Stick Blood Glucose 145 09/16/22 06:52 Lab Results Blood Type / Crossmatch: No Data to Display Complete Blood Count: No Data to Display Complete Metabolic Panel: No Data to Display Liver Function Panel: No Data to Display Coagulation Panel: No Data to Display Cardiac Panel: No Data to Display Arterial Blood Gas: No Data to Display Venous Blood Gas: No Data to Display Pancreas Panel: No Data to Display Thyroid Panel: No Data to Display Infectious Disease: No Data to Display Blood Cultures: No Data to Display Toxicology Panel: No Data to Display Anesthesia Assessment and Plan Anesthesia History Personal History: No History of Anesthesia Complications Family History: No Family History of Anesthesia Complications Exercise Tolerance Exercise Tolerance: Metabolic Equivalents>4 Pertinent Negatives Pertinent Negatives: No Symptoms of GERD and No Major Cardiovascular Symptoms or Complaints Cardiac & Pulmonary Exam Cardiac Exam: Normal S1/S2 Heart Sounds Pulmonary Exam: Clear Bilateral Breath Sounds Implantable Cardiac Device Does patient have a Pacemaker or an ICD?: No Airway Exam Known Difficult Airway: No Mallampati Class: 1 Mouth Opening: Normal (> 3cm) Thyromental Distance: Greater than 3 cm Facial Hair: Full Contreras Neck Range of Motion: Full ROM Neck Circumference: Normal Teeth Condition: Normal Dentition ASA Classification ASA Score: ASA 2 Emergency Case?: No NPO Status NPO Status: NPO Clears >2 hours, Solids >8 hours Anesthesia Plan Resuscitation Status: Full Code Anesthesia Technique: General Anesthesia Airway Planned: LMA Monitors Used: Standard Monitors
--- NOTE | 2022-09-16 07:02 | W.PM.HP.N ---
Date of service: 09/16/22 Time of Service: 07:04 Assessment and Plan Assessment and plan (1) Left hydrocele: Status: Acute Assessment and plan: Since the hydrocele is symptomatic, we will perform hydrocelectomy. History of Present Illness History of Present Illness Chief Complaint: Left hydrocele Narrative: This is a 42 year old man who has a long history of scrotal swelling. The left side has been increasing in size over time and is becoming more uncomfortable in certain positions. He was evaluated with a scrotal US and found to have a normal testis and hydrocele. he presents for hydrocelectomy. Review of Systems Narrative: No fevers or chills No vision change or dysphasia Hx Diabetes. No thyroid dysfunction No shortness of breath, cough or hemoptysis No chest pain or palpitations No nausea, vomiting, hepatitis, ulcers, jaundice No seizures, strokes or peripheral neuropathy No bleeding disorders or anemia No gout PFSH All Active Problems (Updated 09/16/22 @ 07:03 by Chao Stone MD) Left hydrocele (Acute) Abscess, dental (Acute) Scrotal pain (Acute) Medical History (Updated 09/16/22 @ 07:03 by Chao Stone MD) Anxiety Hx of fracture of tibia Sleep apnea Surgical History (Updated 09/16/22 @ 06:24 by April Zimmer) History of appendectomy Hx of wisdom tooth extraction Social History Smoking/Tobacco Use Status: Current every day Tobacco Type: cigarettes Smoking risk assessment performed?: Yes Alcohol Intake: current Alcohol Intake frequency: holidays/special occasions only Drug use: Never Substance use type: does not use Do you feel safe at home: Yes Do you feel safe in your relationship?: Yes Meds Allergies and Home Medications Allergies Allergy/AdvReac Type Severity Reaction Status Date / Time Penicillins Allergy Mild Hives Unverified 09/16/22 06:23 metformin Allergy Verified 09/16/22 06:23 Home Medications Medication Instructions Recorded Confirmed Type sertraline 100 mg tablet 200 mg PO DAILY 05/14/18 09/16/22 History metformin 1,000 mg tablet,extended 1,000 mg PO DAILY 07/05/22 09/16/22 History release 24hr Exam Const General: cooperative Neck Neck: supple Resp Effort & Inspection: normal respiratory effort Auscultation: clear to auscultation bilaterally Cardio Rate: regular rate Rhythm: regular rhythm GI Palpation: soft and no masses Scrotum: hydrocele, scrotal mass and scrotal swelling Neuro General: patient alert, patient awake and patient oriented x3 Results Last Vital Signs Temp 36.5 C 09/16/22 06:42 Pulse 66 09/16/22 06:42 Resp 16 09/16/22 06:42 BP 115/83 09/16/22 06:42 Pulse Ox 98 09/16/22 06:42 Time Spent Time spent with Patient: <40 minutes Time was spent: other
[2022-09-16] MEDS: Bupivacaine 0.25% Pres-Free 30 ML VIAL (08:13)
--- NOTE | 2022-09-16 08:34 | W.PM.DSUDISC ---
Date of service: 09/16/22 Time of Service: 08:34 Discharge Plan Disposition Condition: Stable Discharge Details Reason For Visit: hydrocele Attending Provider: Chao Stone Primary Care Provider: Eric St Home Meds and New Rx's Prescriptions: No Action metformin 1,000 mg tablet extended release 24 hr 1,000 mg PO DAILY sertraline 100 mg Tablet 200 mg PO DAILY Discharge Instructions Additional Instructions: scrotal support ice packs to scrotum no lifting over 10 pounds until followup visit followup 2 to 3 weeks Activity:: see above Remove Dressings/Wound Care:: 24 hours Shower/Bathe:: 24 hours Diet:: As Tolerated DS: Diagnosis Discharge Diagnosis (1) Left hydrocele: Status: Acute
--- NOTE | 2022-09-16 08:40 | W.PM.DSUDISC ---
Date of service: 09/16/22 Time of Service: 08:41 Discharge Plan Disposition Patient Disposition: Home Condition: Stable Discharge Details Reason For Visit: hydrocele Attending Provider: Chao Stone Primary Care Provider: Eric St Home Meds and New Rx's Prescriptions: New oxycodone 5 mg tablet 5 mg PO Q6H PRN (Reason: pain) Qty: 12 0RF No Action metformin 1,000 mg tablet extended release 24 hr 1,000 mg PO DAILY sertraline 100 mg Tablet 200 mg PO DAILY Discharge Instructions Additional Instructions: scrotal support ice packs to scrotum no lifting over 10 pounds until followup visit followup 2 to 3 weeks Activity:: see above Remove Dressings/Wound Care:: 24 hours Shower/Bathe:: 24 hours Diet:: As Tolerated Discharge Orders Discharge Orders: Discharge Order (Routine); Ordered 09/16/22 Ordered By: Chao Stone DS: Diagnosis Discharge Diagnosis (1) Left hydrocele: Status: Acute
--- NOTE | 2022-09-16 08:47 | ROE_ITS ---
Date of service: 09/16/22 Time of Service: 08:47 Operative Note Operative Note DATE OF PROCEDURE: 09/16/22 PRE-OP DIAGNOSIS: Left Hydrocele POST-OP DIAGNOSIS: same PROCEDURE: Left Hydrocelectomy SURGEON: Chao Stone Refer to Anesthesia Record ESTIMATED BLOOD LOSS: 25 PATHOLOGY: none sent COMPLICATIONS: None Implants: none Indications: This is a 42-year-old gentleman who has a long history of left-sided scrotal enlargement. Over the years, the size of the left hemiscrotum is gradually increased. On ultrasound he has a normal testis with a very large left hydrocel e. He presents for hydrocelectomy Procedure Description: The patient was brought to the operating room on 09/16/2022. After successful induction of general anesthesia, he was placed in the supine position. His genitalia was prepped and draped. Left transverse scrotal incision was made and the incision was extended down through the subcutaneous tissue until the dartos muscle was encountered. The dartos was divided with the Bovie and the tunica vaginalis was identified. The testis, still within the tunica vaginalis was then delivered through the incision. The tunica was opened on the anterior aspect and over 750 cc of yellow-tinged fluid was drained. The testis within the tunica and hydrocele sac appeared normal. The redundant hydrocele sac was excised. The tunica was then everted behind the testis and reapproximated using a running 2-0 chromic suture. The wound was inspected for hemostasis. No active bleeding was seen. The testis was delivered back within the left hemiscrotum. The dartos muscle was reapproximated with 3-0 chromic suture. The skin was reapproximated with simple interrupted 4-0 chromic. Dermabond was applied to the wound followed by a fluff dressing and scrotal support. The patient tolerated this procedure well with no complications. He was taken to the recovery room in stable condition.
--- NOTE | 2022-09-16 10:31 | W.ANESPOSTOP ---
Postoperative Evaluation Date, Time and Location Date Performed: 09/16/22 Time Performed: 10:31 Patient Location: Day Surgery Unit Vital Signs Most Recent Imported Vital Signs: Most Recent Vital Signs Temp Pulse Resp BP Pulse Ox 36.6 C 67 16 106/65 97 09/16/22 10:02 09/16/22 10:02 09/16/22 10:02 09/16/22 10:02 09/16/22 10:02 Pain Score Most Recent Pain Score: Most Recent Pain Score Pain Level 0 09/16/22 10:02 Assessment Mental Status: Awake (Alert & Oriented to Patient Baseline) Airway and Respiratory Function: Patent airway with normal (patient baseline) respiratory exam Cardiovascular Function: Hemodynamically Stable Hydration Status: Adequately Hydrated Nausea & Vomiting: No Nausea or Vomiting Pain: Pt. Denies Any Pain Peripheral Nerve Block: Patient did not receive a nerve block
== END 2022-09-16 10:40 | disposition home or self-care (01) ==
PROVIDERS: PCP Family Medicine; Visit Provider Urology
PROC: (CPT 55040; principal; 2022-09-16 07:30)
DX: N43.3 Hydrocele, unspecified (principal)
CPT/HCPCS: 55040; J0744; J1100; J1885; J2250; J2405; J2704

== ENCOUNTER 2023-08-22 16:26 | Outpatient (REF) | payer SELFPAY ==
[2023-08-22 14:53] LABS: HCT 43.6 % (40.0-50.0); HGB 14.5 g/dL (13.5-17.5); MCH 29.5 pg (27.0-33.0); MCHC 33.3 % (32.0-36.0); MCV 89 fL (80-95); Platelet Count 147 10^3/uL (130-400); RBC 4.91 10^6/uL (4.36-5.78); RDW-SD 42.4 fL; WBC 9.62 10^3/uL (4.4-10.8)
[2023-08-22 15:34] LABS: ALT 97 U/L (16-63); AST 34 U/L (15-37); Albumin 4.3 g/dL (3.4-5.0); Alkaline Phosphatase 81 U/L (46-116); Anion Gap 7.7 mmol/L (3-11); BUN 18 mg/dL (7-18); Bilirubin, Total 0.3 mg/dL (0.2-1.0); CO2 28.3 mmol/L (21.0-32.0); CREATININE 1.2 mg/dL (0.70-1.30); Calcium 9.3 mg/dL (8.5-10.1); Calculated LDL 101 mg/dL (<100); Chloride 102 mmol/L (98-107); Cholesterol 196 mg/dL (<200); Estimated GFR 77.43 (mL/min/1.73m2); Glucose 217 mg/dL (74-106); HDL Cholesterol 41 mg/dL (40-60); Potassium 5.1 mmol/L (3.5-5.1); Sodium 138 mmol/L (136-145); Total Protein 7.9 g/dL (6.4-8.2); Triglyceride 272 mg/dL (<150)
== END 2023-08-22 16:27 | disposition home or self-care (01) ==
LOC: NCHCN 16:26
PROVIDERS: PCP Family Medicine; Visit Provider Family Medicine
DX: Z00.00 Encounter for general adult medical examination without abnormal findings (principal); E78.5 Hyperlipidemia, unspecified
CPT/HCPCS: 80053; 80061; 85027

== ENCOUNTER 2024-01-27 19:48 | Emergency (ER) | payer OTHER, SELFPAY ==
[2024-01-27 19:58] VITALS: BP 146/92; PULSE 85; RESP 18; TEMP 37.2; O2SAT 100
--- NOTE | 2024-01-27 20:12 | ED.GENADUL_ITS ---
Discharge Plan Disposition Patient Disposition: Home Condition: Stable Discharge Details Clinical Impression: Crushing injury of left index finger Primary Care Provider: Eric St ED Provider: Zac Padilla Home Meds and New Rx's Prescriptions: Continued metformin 1,000 mg tablet extended release 24 hr 1,000 mg PO DAILY sertraline 100 mg Tablet 200 mg PO DAILY pravastatin 10 mg tablet 10 mg PO DAILY Patient Comments: TAKE ONE TABLET BY MOUTH DAILY Discharge Instructions Additional Instructions: Keep the wound clean If you develop spreading redness on the hand or severe worsening pain return to the emergency department for reevaluation Try to keep it covered while you are doing any work that may increase the chance of the wound getting dirty HPI General Mode of arrival: ambulatory . Date/Time Provider Initiated Documentation: 01/27/24 20:03 . Limitations to Documentation: no limitations . Information obtained by: patient . History of Present Illness 43 year old M presents to the emergency department with the chief complaint of left index finger injury, described as mild, and is localized to the left and upper extremity. Patient reports no radiation. Patient started experiencing this hour(s) (1) and it has been constant. No relieving factors improve symptom(s), No exacerbating factors reported . Patient notes no other symptoms.. Patient did receive the following treatments prior to arrival, none Related Data Home Medications Medication Instructions Recorded Confirmed sertraline 100 mg tablet 200 mg PO DAILY 05/14/18 01/27/24 metformin 1,000 mg tablet,extended 1,000 mg PO DAILY 07/05/22 01/27/24 release 24hr (osmotic) pravastatin 10 mg tablet 10 mg PO DAILY 01/27/24 01/27/24 Allergies Allergy/AdvReac Type Severity Reaction Status Date / Time Penicillins Allergy Mild Hives Unverified 01/27/24 20:01 metformin Allergy Diarrhea Verified 01/27/24 20:01 General Stated Complaint: Laceration VIVEK: 3 Review of Systems All systems reviewed & are unremarkable except as noted in HPI and below Constitutional Constitutional: Denies chills, Denies fever(s) and Denies weakness Cardiovascular Cardiovascular: Denies chest pain and Denies dyspnea Respiratory Respiratory: Denies dyspnea Gastrointestinal Gastrointestinal: Denies vomiting Musculoskeletal Musculoskeletal: Denies joint swelling Neurologic Neurologic: Denies weakness Exam Const General: no acute distress Orientation: alert HENMT Head: normal to inspection Ears: external ears normal General nose exam: external nose normal Mouth: moist mucous membranes Eyes General: appearance normal, both eyes and all related structures Neck Neck: normal visual inspection Resp Effort & Inspection: normal respiratory effort and able to speak in complete sentences Cardio Rate: regular rate Skin General skin exam: no rashes or lesions noted Neuro General: patient alert and patient oriented x3 Extrem General: full ROM and capillary refill normal Psych Mental Status: mental status grossly normal Course Vital Signs Vital signs: Vital Signs Temperature 37.2 C 01/27/24 19:58 Pulse 85 01/27/24 19:58 Respiratory Rate 18 01/27/24 19:58 Blood Pressure 146/92 H 01/27/24 19:58 Pulse Oximetry 100 01/27/24 19:58 Temperature 37.2 C 01/27/24 19:58 Temperature Source Temporal Artery Scan 01/27/24 19:58 Pulse 85 01/27/24 19:58 Respiratory Rate 18 01/27/24 19:58 Respiratory Effort Normal, Non-Labored 01/27/24 20:01 Blood Pressure 146/92 H 01/27/24 19:58 Blood Pressure Position Sitting 01/27/24 19:58 Pulse Oximetry 100 01/27/24 19:58 Oxygen Delivery Method Room Air 01/27/24 19:58 Oxygen Flow Rate 0 01/27/24 19:58 Pain Level 2 01/27/24 19:58 Medical Decision Making 43-year-old male with a history of diabetes comes in with a left index finger injury. He says just prior to arrival he was moving things and got his left index finger caught between the edge of a couch in a dumpster. Denies falling or other injuries. He has a superficial skin flap on the palmar surface of the left index finger between the PIP and DIP joint. He has full range of motion of the finger in extension and flexion at all joints, intact sensation, he has no bony tenderness. Discussed doing x-rays to exclude fracture and he declines and I feel this is reasonable given the lack of bony tenderness. Will have nursing clean his hands as he was wearing hearing on cars and his hands are quite dirty and evaluate if his skin flap will need sutures versus skin adhesive. Patient states that he gets regular checkups with his PCP and believes he is up-to-date on his tetanus vaccine Wound was cleaned copiously, I was able to tack down the wound with skin adhesive which he tolerated well. He is stable for discharge advised follow-up with PCP and return precautions given Differential Diagnosis Differential Diagnosis: abrasion, lac Quality:SDOH Health Related Social Needs: No Data to Display PFSH All Active Problems (Updated 01/27/24 @ 21:09 by Zac Padilla MD) Crushing injury of left index finger (Acute) Hematoma (nontraumatic) of male genital organs (Acute) Abscess, dental (Acute) Scrotal pain (Acute) Medical History (Updated 01/27/24 @ 21:09 by Zac Padilla MD) Left hydrocele Hx of fracture of tibia Anxiety Sleep apnea Surgical History (Updated 09/16/22 @ 06:24 by April Zimmer) Hx of wisdom tooth extraction History of appendectomy Social History Smoking/Tobacco Use Status: Current every day Tobacco Type: cigarettes Smoking risk assessment performed?: Yes Alcohol Intake: current Alcohol Intake frequency: holidays/special occasions only Drug use: Never Substance use type: does not use Do you feel safe at home: Yes Do you feel safe in your relationship?: Yes
== END 2024-01-27 21:41 | disposition home or self-care (01) ==
PROVIDERS: Emergency Provider Emergency Medicine; PCP Family Medicine
DX: S67.191A Crushing injury of left index finger, initial encounter (principal); W23.0XXA Caught, crushed, jammed, or pinched between moving objects, initial encounter
CPT/HCPCS: 99282

== ENCOUNTER 2024-02-25 13:14 | Emergency (ER) | payer OTHER, SELFPAY ==
[2024-02-25 13:19] VITALS: BP 151/76; PULSE 74; RESP 16; TEMP 37.1; O2SAT 98
--- NOTE | 2024-02-25 14:07 | W.ED.GENAD ---
Discharge Plan Disposition Patient Disposition: Home Discharge Details Clinical Impression: Laceration of left middle finger Primary Care Provider: Eric St ED Provider: Ted Shane Home Meds and New Rx's Prescriptions: New cephalexin 500 mg tablet 500 mg PO QID 2 Days Qty: 8 0RF No Action metformin 1,000 mg tablet extended release 24 hr 1,000 mg PO DAILY sertraline 100 mg Tablet 200 mg PO DAILY pravastatin 10 mg tablet 10 mg PO DAILY Patient Comments: TAKE ONE TABLET BY MOUTH DAILY Discharge Instructions Instructions: Laceration Repair With Stitches ED, Wound Care ED, Laceration Repair With Glue ED Additional Instructions: Watch for any signs of infection and return immediately to the emergency department if these occur. Otherwise keep dressing in place for the next 24-48 hours and then keep wound clean and dry. Return to the emergency department 10 days for suture removal. Discharge Data Discharge Date/Time-TO BE ENTERED AT DEPARTURE: 02/25/24 14:19 HPI General Mode of arrival: ambulatory. Date/Time Provider Initiated Documentation: 02/25/24 13:16. Limitations to Documentation: no limitations. Information obtained by: patient. History of Present Illness 43 year old M presents to the emergency department with the chief complaint of Left middle finger laceration, Related Data Home Medications ?Medication ?Instructions ?Recorded ?Confirmed sertraline 100 mg tablet 200 mg PO DAILY 05/14/18 02/25/24 metformin 1,000 mg tablet,extended 1,000 mg PO DAILY 07/05/22 02/25/24 release 24hr (osmotic) pravastatin 10 mg tablet 10 mg PO DAILY 01/27/24 02/25/24 cephalexin 500 mg tablet 500 mg PO QID 2 days #8 tabs 02/25/24 Previous Rx's ?Medication ?Instructions ?Recorded cephalexin 500 mg tablet 500 mg PO QID 2 days #8 tabs 02/25/24 Allergies Allergy/AdvReac Type Severity Reaction Status Date / Time Penicillins Allergy Mild Hives Unverified 02/25/24 13:22 metformin Allergy Diarrhea Verified 02/25/24 13:22 General Stated Complaint: Laceration VIVEK: 4 Review of Systems Cardiovascular Cardiovascular: Denies syncope and Denies lightheadedness Musculoskeletal Musculoskeletal: Denies deformity, Denies limited range of motion and Denies numbness Integumentary/Breasts Skin/Breast: Reports as per HPI Neurologic Neurologic: Denies syncope, Denies numbness and Denies paresthesias Exam Const General: cooperative and no acute distress Orientation: alert, awake and oriented x3 Limitations: mental status not altered Resp Effort & Inspection: normal respiratory effort and able to speak in complete sentences Neuro General: patient alert, patient awake, patient oriented x3, tone normal, moves all extremities, normal light touch, pain and propioception and no focal motor deficits Motor: no movement abnormalities noted Sensory Exam: no sensory deficits noted Extrem General: normal exam except as noted Left upper extremity: hand Details: normal capillary refill and laceration 3rd digit dorsal aspect central Details: flap, actively bleeding, involving subcutaneous tissue, with motor nerve function intact and with sensation intact Course Vital Signs Vital signs: Vital Signs Temperature 37.1 C 02/25/24 13:19 Pulse 74 02/25/24 13:19 Respiratory Rate 16 02/25/24 13:19 Blood Pressure 151/76 H 02/25/24 13:19 Pulse Oximetry 98 02/25/24 13:19 Temperature 37.1 C 02/25/24 13:19 Pulse 74 02/25/24 13:19 Respiratory Rate 16 02/25/24 13:19 Blood Pressure 151/76 H 02/25/24 13:19 Pulse Oximetry 98 02/25/24 13:19 Pain Level 0 02/25/24 13:19 Procedures Laceration Laceration 1: Description: flap Depth: simple, single layer Pre-repair: wound explored and irrigated extensively Skin layer closed with: other (Prolene) Size (cm): 5-0 Number of sutures: 2 Technique: simple, interrupted and other (Dermabond also used) Medical Decision Making Left middle finger flap laceration 1.2 cm. No tendinopathy or neuropathy noted cap refill normal please see procedure note for repair given deeper puncture wound will place patient on Keflex for 2 days as prophylaxis. Tetanus up-to-date. Of note patient did decline use of lidocaine and did tolerate procedure well. After discussion of diagnosis and plan of care patient has no further needs, questions, or concerns and states clear understanding to return to the emergency department for any worsening symptoms. This documentation was generated using [employer] system, please disregard any oddities of phrase or misspellings. Quality:SDOH Health Related Social Needs: No Data to Display [facility] All Active Problems (Updated 02/25/24 @ 14:11 by Ted Shane NP) Laceration of left middle finger (Acute) Crushing injury of left index finger (Acute) Hematoma (nontraumatic) of male genital organs (Acute) Abscess, dental (Acute) Scrotal pain (Acute) Medical History (Updated 02/25/24 @ 14:11 by Ted Shane NP) Left hydrocele Hx of fracture of tibia Anxiety Sleep apnea Surgical History (Updated 09/16/22 @ 06:24 by April Zimmer) Hx of wisdom tooth extraction History of appendectomy Social History Smoking/Tobacco Use Status: Current every day Tobacco Type: cigarettes Smoking risk assessment performed?: Yes Alcohol Intake: current Alcohol Intake frequency: holidays/special occasions only Drug use: Never Substance use type: does not use Housing: house Do you feel safe at home: Yes Do you feel safe in your relationship?: Yes
== END 2024-02-25 14:19 | disposition home or self-care (01) ==
PROVIDERS: Emergency Provider Nurse Practitioner Family; PCP Family Medicine
DX: S61.213A Laceration without foreign body of left middle finger without damage to nail, initial encounter (principal); F17.210 Nicotine dependence, cigarettes, uncomplicated; W26.8XXA Contact with other sharp object(s), not elsewhere classified, initial encounter; Y93.89 Activity, other specified
CPT/HCPCS: 12001; 99283

== ENCOUNTER 2024-07-16 13:39 | Outpatient (REF) | payer OTHER, SELFPAY ==
[2024-07-16 15:01] LABS: Abs Immature Grans 0.05 10^3/uL (0.0-0.06); Absolute Basophil Count 0.07 10^3/uL (0.0-0.2); Absolute Eosinophil Count 0.42 10^3/uL (0.0-0.7); Absolute Lymphocyte Count 2.04 10^3/uL (1.2-3.4); Absolute Monocyte Count 0.51 10^3/uL (0.1-0.8); Absolute Neutrophil Count 5.34 10^3/uL (1.2-6.7); Basophils % 0.8 %; HCT 41.5 % (40.0-50.0); HGB 13.7 g/dL (13.5-17.5); Immature Grans % 0.6 %; Lymphocytes % 24.2 %; MCH 29.8 pg (27.0-33.0); MCV 90 fL (80-95); MPV 12.9 fL (8.0-11.0); Neutrophils % 63.4 %; Platelet Count 150 10^3/uL (130-400); RBC 4.59 10^6/uL (4.36-5.78); RDW 12.8 % (11.8-14.1); RDW-SD 42.3 fL; WBC 8.43 10^3/uL (4.4-10.8)
[2024-07-16 15:47] LABS: ALT 77 U/L (16-63); AST 23 U/L (15-37); Albumin 4.1 g/dL (3.4-5.0); Alkaline Phosphatase 112 U/L (46-116); Anion Gap 10.2 mmol/L (3-11); BUN 16 mg/dL (7-18); Bilirubin, Total 0.23 mg/dL (0.2-1.0); CO2 25.8 mmol/L (21.0-32.0); CREATININE 1.1 mg/dL (0.70-1.30); Calcium 9.4 mg/dL (8.5-10.1); Calculated LDL 108 mg/dL (<100); Chloride 104 mmol/L (98-107); Cholesterol 188 mg/dL (<200); Estimated GFR 85.95 (mL/min/1.73m2); Glucose 192 mg/dL (74-106); HDL Cholesterol 42 mg/dL (40-60); Potassium 4.6 mmol/L (3.5-5.1); Sodium 140 mmol/L (136-145); Total Protein 7.6 g/dL (6.4-8.2); Triglyceride 191 mg/dL (<150)
[2024-07-16 16:01] LABS: COMMENT (LAB VIEW ONLY) 159.32 mg/dL; Microalb ug/mg Crea 19.8 ug/mg Cr
== END 2024-07-16 13:40 | disposition home or self-care (01) ==
LOC: NCHCN 13:39
PROVIDERS: PCP Family Medicine; Visit Provider Family Medicine
DX: K76.0 Fatty (change of) liver, not elsewhere classified (principal); E11.9 Type 2 diabetes mellitus without complications; E78.5 Hyperlipidemia, unspecified
CPT/HCPCS: 80053; 80061; 82043; 82570; 85025

== ENCOUNTER 2024-12-09 18:01 | Emergency (ER) | payer OTHER, SELFPAY ==
--- NOTE | 2024-12-09 18:00 | DI.RAD_ITS ---
Exam(s) XR CHEST 2V PA LATERAL EXAM: XR CHEST 2V PA LATERAL CLINICAL HISTORY: Chest pain TECHNIQUE: 2D digital imaging was performed of the chest. Two images were obtained. PA and lateral views were obtained. COMPARISON: CR CHEST 2 VIEWS PA,LAT from 12/22/2012 CR,XR XR CHEST 2V PA LATERAL from 06/24/2019 FINDINGS: MEDIASTINUM: Normal. HEART: Normal. PULMONARY VASCULATURE: Normal. LUNGS: Clear. PLEURAL SPACE: No pleural effusion or pneumothorax. BONE:Within normal limits for the patient's age. OTHER FINDINGS:Normal. IMPRESSION: 1. No acute pulmonary findings. 2. The preliminary [facility] report was reviewed. DATA REPOSITORY: RADIATION DOSE DELIVERED:
--- NOTE | 2024-12-09 18:00 | RT.EKG_ITS ---
APPROVED REPORT Exam: Resting ECG Reason for Exam: Chest pain Patient Location: E HR:68 bpm ECG Measurements Heart Rate [address] 157 P 46 QRSd 86 QRS 32 QT 365 T 45 QTc 389 Conclusion Sinus rhythm, rate 68 No interval abnormalities No STEMI No priors available for comparison
[2024-12-09 18:05] VITALS: BP 149/102; PULSE 72; RESP 18; O2SAT 100
--- NOTE | 2024-12-09 18:14 | ED.GENADUL_ITS ---
Discharge Plan Disposition Patient Disposition: Home Condition: Stable Discharge Details Clinical Impression: Chest pain of unknown etiology Primary Care Provider: Eric [facility] ED Provider: Charisma Amin Home Meds and New Rx's Prescriptions: No Action metformin 1,000 mg tablet extended release 24 hr 1,000 mg PO DAILY sertraline 100 mg Tablet 200 mg PO DAILY pravastatin 10 mg tablet 10 mg PO DAILY Patient Comments: TAKE ONE TABLET BY MOUTH DAILY glipizide 2.5 mg tablet extended release 24hr 2.5 mg PO DAILY Patient Comments: TAKE ONE TABLET BY MOUTH EVERY DAY IN THE MORNING Discharge Instructions Instructions: Chest Pain, Adult ED Additional Instructions: You were seen in the emergency department today for evaluation of chest pain which resolved on its own. In our department you had a full physical examination performed, had laboratory studies that were reassuring, and had a normal EKG. You had cardiac enzymes that were negative, and at this time it is safe for you to go home and follow-up with your outpatient provider, who will likely recommend reassessment and possibly stress testing to evaluate your heart health. You can return to the emergency department and should do so if you develop any chest pain, shortness of breath, or other concerning symptoms. Thank you for allowing us to be part of your care. HPI General Mode of arrival: ambulatory . Date/Time Provider Initiated Documentation: 12/09/24 18:11 . Limitations to Documentation: no limitations . Information obtained by: patient and old records reviewed . HPI Narrative: HISTORY OF PRESENT ILLNESS The patient presents to the emergency room for chest pain. He experienced a sudden onset of chest [place] describing it as a sensation linette to someone compressing his sternum. This was accompanied by lightheadedness, numbness in his lips, and bilateral arm tingling. The episode lasted approximately 10 minutes and resolved almost completely. Currently, he reports residual chest discomfort. Deep inhalation exacerbated the pain, while drinking water provided temporary relief. He did not take any analgesics prior to his visit. He has no personal history of cardiac issues but reports a family history of such conditions. He felt normal when he woke up this morning. He has a cough for a couple of days, which he attributes to blowing dust. He has not had any fevers or chills with this cough. He is not bringing anything up with this cough. He has no history of respiratory disorders such as asthma or COPD. He has sleep apnea and uses a CPAP machine. He is currently on glipizide 2.5 mg. He has a known history of diabetes and is currently on metformin and glipizide. His most recent A1c level was 7. Related Data Home Medications ?Medication ?Instructions ?Recorded ?Confirmed sertraline 100 mg tablet 200 mg PO DAILY 05/14/18 12/09/24 metformin 1,000 mg tablet,extended 1,000 mg PO DAILY 07/05/22 12/09/24 release 24hr (osmotic) pravastatin 10 mg tablet 10 mg PO DAILY 01/27/24 12/09/24 glipizide 2.5 mg tablet, extended 2.5 mg PO DAILY 12/09/24 12/09/24 release 24 hr Allergies Allergy/AdvReac Type Severity Reaction Status Date / Time Penicillins Allergy Mild Hives Unverified 12/09/24 18:07 metformin Allergy Diarrhea Verified 12/09/24 18:07 General Stated Complaint: Chest Pain VIVEK: 2 Exam Narrative Exam Narrative: Gen: awake and alert, in no apparent distress. Appears well nourished. HEENT: PERRL, EOMs full and without nystagmus. External ears and nose normal, mucous membranes moist. Neck: Supple, full range of motion, no observable masses Lungs: No increased work of breathing, lung sounds clear and equal bilaterally without wheezes, rhonchi, or rales. CV: Heart with regular rate and rhythm, no murmurs auscultated. Strong and symmetrical radial pulses. Abdomen: Soft, nondistended, non-tender to palpation. No rigidity, rebound tenderness, or guarding. MSK: No joint swelling, no redness. Full ROM without limitation, no external traumatic findings. Skin: No rashes or lesions to visualized skin. Normal color, warm, and dry. Neuro: No focal motor or sensory deficits, symmetrical face and clear speech. Ambulates with steady gait. Psych: Appropriate for situation. Course Vital Signs Vital signs: Vital Signs Pulse 72 12/09/24 18:05 Respiratory Rate 18 12/09/24 18:05 Blood Pressure 149/102 H 12/09/24 18:05 Pulse Oximetry 100 12/09/24 18:05 Pulse 72 12/09/24 18:05 Respiratory Rate 18 12/09/24 18:05 Blood Pressure 149/102 H 12/09/24 18:05 Pulse Oximetry 100 12/09/24 18:05 Medical Decision Making In brief, this is a 44-year-old male patient with a history of [id number] diabetes who is presenting for evaluation of chest pain which has now largely resolved. My differential includes but is not limited to ACS including STEMI, NSTEMI, unstable angina, certainly considered arrhythmia, pericarditis/myocarditis, aortic pathology though the patient is reassuringly without neurodeficit or pulse differential. Considered pulmonary abnormalities including pneumonia, bronchitis, pleural effusion, pulmonary edema, reactive airway disease, pneumothorax. The patient is without tachycardia, hypoxia to significantly increase my concern for pulmonary embolism, and he meets PERC criteria for PE rule out at this time. No GI symptoms or vomiting to suggest Boerhaave's, esophagitis, peptic ulcer disease, pancreatitis. Considered musculoskeletal pathologies including costochondritis, chest wall pain. EKG reviewed by myself, shows normal sinus rhythm without evidence of ischemia, interval abnormality, or ectopy. Will provide the patient with a dose of aspirin, and obtain laboratory studies to include CBC, CMP, magnesium, troponin, and lipase. I will also obtain a chest x-ray to evaluate for pulmonary abnormalities. - I independently interpreted the laboratory studies, which show no significant leukocytosis, anemia, or thrombocytopenia. The chemistry panel is without evidence of electrolyte abnormality, kidney dysfunction, or liver injury, other than isolated elevation to ALT to 73, which has been demonstrated on prior laboratory studies. Initial troponin 4, delta troponin 1 hour later also 4 without interval change, and given the patient's ongoing resolution of symptoms, I feel that he does not require further troponin trending at this time. Lipase is low Chest x-ray was reviewed by myself and shows no pulmonary abnormalities which might account for the patient's symptoms. The patient is now asymptomatic, and I did recommend that he follow-up with his outpatient providers as he may benefit from outpatient stress testing, echocardiography, etc. given his family history of early cardiac disease. At this time, the patient has had a full medical evaluation and is safe for discharge to home. They are hemodynamically stable, ambulatory, and tolerating PO. They are understanding of the follow-up plan and return precautions. They left our facility without incident. Clinical Impression: - Chest pain - Diabetes mellitus Disposition: - Discharge MDM Components Evaluation: - Number of Differential Diagnoses or Management Options: Chest pain, Diabetes mellitus - Amount and Complexity of Data Reviewed: EKG, blood work, chest x-ray - Risk of Complication and Morbidity or Mortality: Moderate risk due to family history of cardiac issues and current chest pain symptoms. Charisma Amin MD Patient consented to the use of [facility] for this patient encounter. Quality:SDOH Health Related Social Needs: No Data to Display PFSH All Active Problems (Updated 12/09/24 @ 20:07 by Charisma Amin MD) Chest pain of unknown etiology (Acute) Hematoma (nontraumatic) of male genital organs (Acute) Abscess, dental (Acute) Scrotal pain (Acute) Medical History Left hydrocele Hx of fracture of tibia Anxiety Sleep apnea Surgical History Hx of wisdom tooth extraction History of appendectomy Social History Smoking/Tobacco Use Status: Current every day Tobacco Type: cigarettes Smoking risk assessment performed?: Yes Alcohol Intake: current Alcohol Intake frequency: holidays/special occasions only Drug use: Never Substance use type: does not use Housing: house Do you feel safe at home: Yes Do you feel safe in your relationship?: Yes
[2024-12-09 18:21] LABS: Abs Immature Grans 0.04 10^3/uL (0.0-0.06); Absolute Basophil Count 0.07 10^3/uL (0.0-0.2); Absolute Eosinophil Count 0.47 10^3/uL (0.0-0.7); Absolute Monocyte Count 0.56 10^3/uL (0.1-0.8); Absolute Neutrophil Count 6.78 10^3/uL (1.2-6.7); Basophils % 0.7 %; Eosinophils % 4.6 %; HCT 44.7 % (40.0-50.0); Immature Grans % 0.4 %; Lymphocytes % 21.7 %; MCH 29.8 pg (27.0-33.0); MCHC 33.6 % (32.0-36.0); MCV 89 fL (80-95); Monocytes % 5.5 %; Neutrophils % 67.1 %; Platelet Count 182 10^3/uL (130-400); RBC 5.04 10^6/uL (4.36-5.78); RDW 12.7 % (11.8-14.1); RDW-SD 40.8 fL; WBC 10.12 10^3/uL (4.4-10.8)
[2024-12-09] MEDS: Aspirin 81 MG CHEW 324 MG CH (18:35)
[2024-12-09 18:36] LABS: ALT 73 U/L (16-63); AST 27 U/L (15-37); Albumin 4.3 g/dL (3.4-5.0); Alkaline Phosphatase 103 U/L (46-116); Anion Gap 8.2 mmol/L (3-11); BUN 15 mg/dL (7-18); Bilirubin, Total 0.3 mg/dL (0.2-1.0); CO2 27.8 mmol/L (21.0-32.0); CREATININE 1.3 mg/dL (0.70-1.30); Calcium 9.9 mg/dL (8.5-10.1); Chloride 101 mmol/L (98-107); Glucose 138 mg/dL (74-106); Lipase 33 U/L (<78); Magnesium 1.8 mg/dL (1.8-2.4); Potassium 4.2 mmol/L (3.5-5.1); Sodium 137 mmol/L (136-145); Total Protein 8.6 g/dL (6.4-8.2); Troponin I 4 ng/L (<or=76)
[2024-12-09 19:45] LABS: Troponin I 4 ng/L (<or=76)
--- NOTE | 2024-12-09 19:52 | DI.VRAD_ITS ---
PROCEDURE INFORMATION: Exam: XR Chest Exam date and time: 12/09/2024 6:41 PM Age: 44 years old Clinical indication: Other: Chest pain TECHNIQUE: Imaging protocol: Radiologic exam of the chest. Views: 2 views. COMPARISON: CR XR PORTABLE CHEST AP 04/03/2022 6:55 PM FINDINGS: Lungs: Unremarkable. No consolidation. Pleural spaces: Unremarkable. No pleural effusion. No pneumothorax. Heart/Mediastinum: Unremarkable. No cardiomegaly. Bones/joints: Unremarkable. IMPRESSION: No evidence for acute abnormality in the chest. Dictated and Authenticated by: Ratna Lin MD. Orderin [facility] Cordell Zafar MD
[2024-12-09 20:36] VITALS: BP 140/90; PULSE 76; RESP 16; O2SAT 99
== END 2024-12-09 20:56 | disposition home or self-care (01) ==
PROVIDERS: Emergency Provider Emergency Medicine; PCP Family Medicine
DX: R07.9 Chest pain, unspecified (principal); F17.291 Nicotine dependence, other tobacco product, in remission; Z82.49 Family history of ischemic heart disease and other diseases of the circulatory system
CPT/HCPCS: 99283; 99284; 36415; 36416; 82962; 80053; 83690; 93005; 71046; 83735; 84484; 85025; 93010